=== PATIENT | female | born 1950 | race Caucasian/White ===

== ENCOUNTER 2017-01-26 21:17 | Inpatient (IN) ==
[2017-01-26] MEDS ORDERED: DUONEB (A & A) INH ONE (23:22)
[2017-01-26] MEDS ORDERED: CLINDAMYCIN 600 MG/NS 600 MG/50 ML IVPB IV ONE (23:24)
--- NOTE | 2017-01-26 23:25 | PROVIDER DOCUMENTATION ---
HPI-Rash/Wound/ReCheck - General Chief Complaint: General Adult Stated Complaint: FINGER SWELLING/LACERATION ARM Time Seen by Provider: 01/26/17 23:13 Source: patient Allergies/Adverse Reactions: Allergies Allergy/AdvReac Type Severity Reaction Status Date / Time No Known Allergies Allergy Verified 01/27/17 00:24 Home Medications: Home Medication List Medication Instructions Recorded Confirmed Last Taken Type Lisinopril [Zestril] 10 mg PO QAM 09/04/12 07/19/16 07/19/16 History Metoprolol Succinate E.r. [Toprol 50 mg PO QAM 09/04/12 07/19/16 07/19/16 History Xl] Rosuvastatin Calcium [Crestor] 5 mg PO HS 09/04/12 07/19/16 07/19/16 History Spironolactone 12.5 mg PO BID 09/04/12 07/19/16 07/19/16 History Tiotropium [place] Inhaler 1 puff INH QHS 09/04/12 07/19/16 07/19/16 History [Spiriva] Zolpidem [Ambien] 5 mg PO QHS 09/04/12 07/19/16 07/19/16 History Budesonide/Formoterol Inhaler 1 puff INH RTBID 08/05/15 07/19/16 07/19/16 History [Symbicort 160/4.5 Microgm Inhaler] Acetaminophen/Diphenhydramine 1 each PO HS 07/19/16 07/19/16 07/19/16 History [Tylenol Pm] Aspirin 325 mg PO DAILY 07/19/16 07/19/16 07/19/16 History Guaifenesin/Dm [Robitussin-Dm] 1 tab PO Q4H PRN PRN 07/19/16 07/19/16 07/19/16 History - History of Present Illness-Dermatology Nature of Presenting Problem: 66 year old WF presents with c/o pain , swelling to right thumb/hand since cutting her finger last night while doing dishes. Pt reports the swelling increased during the night with erythema spreading up through the hand. pt reports she has lost her appetite and now has nausea. Location: reports: hands Quality: reports: painful Severity: reports: moderate Onset/Duration: reports: 24 hours ago Timing: reports: still present, constant, getting worse Context/Associated Symptoms: reports: laceration Identifiable cause?: Yes Review of Systems - Adult - REVIEW OF SYSTEMS - ADULT Constitutional: reports: no symptoms reported. denies: chills, fever Eyes: reports: no symptoms reported. denies: discharge, blurred vision, double vision Ears, Nose, Mouth & Throat: reports: no symptoms reported. denies: ear discharge, ear pain, nose pain, loose teeth, throat pain, throat swelling Cardiovascular: reports: no symptoms reported. denies: chest pain, palpitations , syncope Respiratory: reports: no symptoms reported. denies: chronic cough, cough, shortness of breath, wheezing Gastrointestinal: reports: see HPI, nausea, poor appetite. denies: abdominal pain, diarrhea, vomiting Genitourinary: reports: no symptoms reported. denies: dysuria, hematuria, urgency Musculoskeletal: reports: no symptoms reported. denies: bone pain, joint pain, joint swelling, neck pain Integumentary: reports: no symptoms reported. denies: hives, itching, skin sores/ulcer Neurological: reports: no symptoms reported. denies: ataxia, numbness, paresthesia, tremors Psychiatric: reports: no symptoms reported Endocrine: reports: no symptoms reported Hematologic/Lymphatic: reports: no symptoms reported Allergic/Immunologic: reports: no symptoms reported All Other Systems: Reviewed and Negative Past History - Adult - PAST MEDICAL HISTORY-ADULT Review of Records: reports: Old Records Reviewed, Nursing Assessment Review, Medications Reviewed, Social history reviewed & non-contributory. Major Childhood Illnesses: reports: denies history Cardiovascular: reports: HTN, hyperlipidemia, [place], pacemaker Respiratory: reports: COPD Gastrointestinal: reports: denies history Obstetrical/Gynecological: reports: denies history Genitourinary: reports: denies history Musculoskeletal: reports: denies history Neurological: reports: CVA Psychiatric: reports: depression Endocrine/Immune: reports: Diabetes Other Conditions: reports: denies history - PRIOR SURGERIES/PROCEDURES Surgical/Procedure History: reports: cardiac stent, tonsillectomy - IMMUNIZATION STATUS Childhood Immunizations: See Nurse Assessment Flu Vaccine: See Nurse Assessment - FAMILY HISTORY Family History: reviewed, not pertinent - SOCIAL HISTORY Smoking: quit greater than 1 year, cigarettes Substance Use: none/never Alcohol Use Frequency: never Physical Exam-General - PHYSICAL EXAM-ADULT Initial Vital Signs Reviewed: Yes - CONSTITUTIONAL General Appearance: appears well, alert, mild distress, cachetic, thin. negative: no apparent distress, moderate distress - EYES Eyes: pink conjunctivae - HEAD, EARS, NOSE, MOUTH & THROAT HENMT: normocephalic/atraumatic, moist mucous membranes - NECK Neck: non-tender, full range of motion, supple, normal inspection. negative: C- spine tenderness, limited range of motion, tender lateral, tender midline - RESPIRATORY Respiratory: chest non-tender, lungs clear, normal breath sounds, no pleuratic chest pain, no respiratory distress, no accessory muscle use. negative: respiratory distress, decreased breath sounds, accessory muscle use, crackles, rales, rhonchi, stridor, wheezing - CARDIOVASCULAR Cardiovascular: normal peripheral pulses, regular rate, rhythm - GASTROINTESTINAL (ABDOMEN) Abdominal Exam: normal bowel sounds, non tender, soft - MUSCULOSKELETAL Back Exam: normal inspection, no CVA tenderness, no vertebral tenderness. negative: CVA tenderness, decreased range of motion, swelling, vertebral tenderness Extremity: normal range of motion, non-tender, normal gait, normal inspection, no pedal edema, no calf tenderness, normal capillary refill. negative: deformity, erythema, swelling, tenderness Peripheral Pulses: radial (R): 3+, radial (L): 3+, dorsalis-pedis (R): 3+, dorsalis-pedis (L): 3+ - SKIN Integumentary: normal color, normal turgor, warm/dry, erythema (right hand) - NEUROLOGIC Neurologic: grossly normal, no motor/sensory deficits - PSYCHIATRIC Psych/Mental Status: normal mood/affect, normal thought content, normal thought process, oriented x 3 Progress - PLAN OF CARE/RESULTS Progress/Plan/Lab Results: Vital Signs - 8 hr 01/26/17 21:24 01/26/17 23:42 01/27/17 00:06 Temperature 97.7 F Pulse Rate 88 87 94 H Respiratory Rate 18 16 16 Blood Pressure 133/93 O2 Sat by Pulse Oximetry 100 92 L Laboratory Results - last 24 hr 01/27/17 01/27/17 01/27/17 00:10 00:10 00:10 WBC 25.19 H RBC 4.01 L Hgb 9.9 L Hct 31.3 L MCV 78.1 L MCH 24.7 L MCHC 31.6 L RDW Std Deviation 15.5 H Plt Count 525 H MPV 9.6 Immature Gran % (Auto) 0.4 Neut % (Auto) 91.1 H Lymph % (Auto) 4.5 L [place] % (Auto) 3.7 Eos % (Auto) 0.3 Baso % (Auto) 0.0 Immature Gran # (Auto) 0.09 H Neut # (Auto) 22.94 H Lymph # (Auto) 1.14 L [place] # (Auto) 0.94 H Eos # (Auto) 0.07 Baso # (Auto) 0.01 PT INR PTT (Actin FS) Sodium 142 Potassium 4.4 Chloride 105 Carbon Dioxide 24 L Anion Gap 13 BUN 27 H Creatinine 0.7 Estimated GFR/1.73 m2 > 60 BUN/Creatinine Ratio 39 Glucose 174 H Calculated Osmolality 292 Calcium 9.2 Total Bilirubin 0.25 AST 15 ALT 27 Alkaline Phosphatase 65 Total Protein 6.0 L Albumin 3.7 Globulin 2.3 Albumin/Globulin Ratio 1.6 Plasma Lactate 1.8 Acetone Level 01/27/17 01/27/17 00:10 00:10 WBC RBC Hgb Hct MCV MCH MCHC RDW Std Deviation Plt Count MPV Immature Gran % (Auto) Neut % (Auto) Lymph % (Auto) [place] % (Auto) Eos % (Auto) Baso % (Auto) Immature Gran # (Auto) Neut # (Auto) Lymph # (Auto) [place] # (Auto) Eos # (Auto) Baso # (Auto) PT 10.7 INR 1.02 PTT (Actin FS) 20.3 L Sodium Potassium Chloride Carbon Dioxide Anion Gap BUN Creatinine Estimated GFR/1.73 m2 BUN/Creatinine Ratio Glucose Calculated Osmolality Calcium Total Bilirubin AST ALT Alkaline Phosphatase Total Protein Albumin Globulin Albumin/Globulin Ratio Plasma Lactate Acetone Level NEGATIVE Orders Category Date Time Status Finger Stick Blood Sugar (ED) DIRECTED Care 01/26/17 23:21 Inactive Saline Loc NOW Care 01/26/17 23:21 Active CHEST-2 VIEWS [RAD] Stat Exams 01/27/17 01:38 Ordered ACETONE SERUM [CHEM] Stat Lab 01/27/17 00:10 Completed BLOOD CULTURE [BLDCUL] Stat Lab 01/27/17 00:36 Results CBC WITH ELECTRONIC DIFF [HEME] Stat Lab 01/27/17 00:10 Completed COMPREHENSIVE METABOLIC PANEL [CHEM] Stat Lab 01/27/17 00:10 Completed LACTATE, PLASMA [CHEM] Stat Lab 01/27/17 00:10 Completed PROTIME WITH INR [COAG] Stat Lab 01/27/17 00:10 Completed PTT [COAG] Stat Lab 01/27/17 00:10 Completed URINALYSIS W/POSS RFLX CULT-1 [URINALYSIS] Stat Lab 01/26/17 23:21 Uncollected Albuterol 2.5MG/Ipratrop 0.5MG [Duoneb (A & A)] Med 01/26/17 23:22 Discontinued 3 ml INH NOW ONE Clindamycin 600 mg/Ns Med 01/26/17 23:24 Discontinued 600 mg in 50 ml IV NOW Morphine Med 01/26/17 23:58 Discontinued 2 mg IV NOW ONE Morphine Med 01/27/17 00:40 Discontinued 2 mg IV NOW ONE Morphine Med 01/27/17 01:11 Discontinued 4 mg IV NOW ONE Ondansetron [Zofran] Med 01/26/17 23:58 Discontinued 4 mg IV NOW ONE Vancomycin 1 gm IV Now Med 01/27/17 01:37 Ordered Vancomycin 1 gm/Ns 1 gm in 250 ml IV NOW Zosyn 3.375 gm/Ns IV Now Med 01/27/17 01:38 Ordered Piperacil/Tazobact 3.375 gm/Ns [Zosyn 3.375 gm/Ns] 50 ml IV NOW Aerosol Treatments Routine Oth 01/26/17 23:22 Completed Aerosol Treatments Stat Oth 01/26/17 23:22 Completed Pulse Oximetry Stat Oth 01/26/17 23:21 Active EKG [EKG] Stat Ther 01/27/17 01:38 Ordered Vital Signs - 24 hr 01/26/17 21:24 01/26/17 23:42 01/27/17 00:06 Temperature 97.7 F Pulse Rate 88 87 94 H Respiratory Rate 18 16 16 Blood Pressure 133/93 O2 Sat by Pulse Oximetry 100 92 L Orders Category Date Time Status Finger Stick Blood Sugar (ED) DIRECTED Care 01/26/17 23:21 Inactive Saline Loc NOW Care 01/26/17 23:21 Active CHEST-2 VIEWS [RAD] Stat Exams 01/27/17 01:38 Ordered ACETONE SERUM [CHEM] Stat Lab 01/27/17 00:10 Completed BLOOD CULTURE [BLDCUL] Stat Lab 01/27/17 00:36 Results CBC WITH ELECTRONIC DIFF [HEME] Stat Lab 01/27/17 00:10 Completed COMPREHENSIVE METABOLIC PANEL [CHEM] Stat Lab 01/27/17 00:10 Completed LACTATE, PLASMA [CHEM] Stat Lab 01/27/17 00:10 Completed PROTIME WITH INR [COAG] Stat Lab 01/27/17 00:10 Completed PTT [COAG] Stat Lab 01/27/17 00:10 Completed URINALYSIS W/POSS RFLX CULT-1 [URINALYSIS] Stat Lab 01/26/17 23:21 Uncollected Albuterol 2.5MG/Ipratrop 0.5MG [Duoneb (A & A)] Med 01/26/17 23:22 Discontinued 3 ml INH NOW ONE Clindamycin 600 mg/Ns Med 01/26/17 23:24 Discontinued 600 mg in 50 ml IV NOW Hydromorphone [Dilaudid] Med 01/27/17 01:45 Once 0.5 mg IV NOW ONE Morphine Med 01/26/17 23:58 Discontinued 2 mg IV NOW ONE Morphine Med 01/27/17 00:40 Discontinued 2 mg IV NOW ONE Morphine Med 01/27/17 01:11 Discontinued 4 mg IV NOW ONE Ondansetron [Zofran] Med 01/26/17 23:58 Discontinued 4 mg IV NOW ONE Vancomycin 1 gm IV Now Med 01/27/17 01:37 Ordered Vancomycin 1 gm/Ns 1 gm in 250 ml IV NOW Zosyn 3.375 gm/Ns IV Now Med 01/27/17 01:38 Ordered Piperacil/Tazobact 3.375 gm/Ns [Zosyn 3.375 gm/Ns] 50 ml IV NOW Aerosol Treatments Routine Oth 01/26/17 23:22 Completed Aerosol Treatments Stat Oth 01/26/17 23:22 Completed Pulse Oximetry Stat Oth 01/26/17 23:21 Active EKG [EKG] Stat Ther 01/27/17 01:38 Ordered Laboratory Tests 01/27/17 01/27/17 01/27/17 00:10 00:10 00:10 WBC 25.19 H RBC 4.01 L Hgb 9.9 L Hct 31.3 L MCV 78.1 L MCH 24.7 L MCHC 31.6 L RDW Std Deviation 15.5 H Plt Count 525 H MPV 9.6 Immature Gran % (Auto) 0.4 Neut % (Auto) 91.1 H Lymph % (Auto) 4.5 L [place] % (Auto) 3.7 Eos % (Auto) 0.3 Baso % (Auto) 0.0 Immature Gran # (Auto) 0.09 H Neut # (Auto) 22.94 H Lymph # (Auto) 1.14 L [place] # (Auto) 0.94 H Eos # (Auto) 0.07 Baso # (Auto) 0.01 PT INR PTT (Actin FS) Sodium 142 Potassium 4.4 Chloride 105 Carbon Dioxide 24 L Anion Gap 13 BUN 27 H Creatinine 0.7 Estimated GFR/1.73 m2 > 60 BUN/Creatinine Ratio 39 Glucose 174 H Calculated Osmolality 292 Calcium 9.2 Total Bilirubin 0.25 AST 15 ALT 27 Alkaline Phosphatase 65 Total Protein 6.0 L Albumin 3.7 Globulin 2.3 Albumin/Globulin Ratio 1.6 Plasma Lactate 1.8 Acetone Level 01/27/17 01/27/17 00:10 00:10 WBC RBC Hgb Hct MCV MCH MCHC RDW Std Deviation Plt Count MPV Immature Gran % (Auto) Neut % (Auto) Lymph % (Auto) [place] % (Auto) Eos % (Auto) Baso % (Auto) Immature Gran # (Auto) Neut # (Auto) Lymph # (Auto) [place] # (Auto) Eos # (Auto) Baso # (Auto) PT 10.7 INR 1.02 PTT (Actin FS) 20.3 L Sodium Potassium Chloride Carbon Dioxide Anion Gap BUN Creatinine Estimated GFR/1.73 m2 BUN/Creatinine Ratio Glucose Calculated Osmolality Calcium Total Bilirubin AST ALT Alkaline Phosphatase Total Protein Albumin Globulin Albumin/Globulin Ratio Plasma Lactate Acetone Level NEGATIVE Result Diagrams: 01/27/17 00:10 01/27/17 00:10 - REASSESSMENT Reassessment #1 Time Reassessed: 01:49 Status: other (pt has required multiple doses of pain medication, notified patient of admission, agrees with plan of care/treatment.) - CONSULTS/PCP/HOSPITALIST Notification #1 *Consult/PCP/Hospitalist*: Dr. Burrows Time Discussed: 01:43 Reason/Comments: cellulitis Consult Disposition: Will see in ED, Admit Departure - Departure Time of Disposition Decision: 01:43 DIAGNOSIS: Cellulitis Qualifiers: Site of cellulitis: extremity Site of cellulitis of extremity: upper extremity Laterality: right Qualified Code(s): L03.113 - Cellulitis of right upper limb COPD (chronic obstructive pulmonary disease) Qualifiers: COPD type: unspecified COPD Qualified Code(s): J44.9 - Chronic obstructive pulmonary disease, unspecified Disposition: ADMITTED INPATIENT 09 Certified Medical Emergency: Emergent Condition: Stable Referrals and Follow-Ups: None,PCP [Primary Care Provider] - - Critical Care Note This patient required my direct & personal management of CC.: No Attestation - Physician/ VITOR Attestation Patient care was provided by Advanced Practice Provider:: Yes Advanced Practice Provider:: Kiki Martinez Advanced Practice Provider documentation review:: The Mid-level provider documentation, treatment plan and medical decision making was reviewed by the physician who agrees with all treatment and medical decision making by the MLP.
[2017-01-26] MEDS ORDERED: MORPHINE IV ONE (23:58)
[2017-01-26] MEDS ORDERED: ZOFRAN IV ONE (23:58)
[2017-01-27] MEDS ORDERED: MORPHINE IV ONE ×2 (00:40→01:11)
[2017-01-27 00:42] LABS: INR 1.02; PROTIME 10.7 Seconds (9.2-11.7); PTT 20.3 Seconds (22.0-36.0)
[2017-01-27 01:01] LABS: AGAP 13; ALBUMIN 3.7 g/dL (3.5-5.0); ALKALINE PHOSPHATASE 65 U/L (32-104); BUN 27 mg/dL (8-22); CALCIUM 9.2 mg/dL (8.8-10.2); CHLORIDE 105 mmol/L (98-107); COSMO 292; GOT 15 U/L (10-30); GPT 27 U/L (10-36); POTASSIUM 4.4 mmol/L (3.5-5.1); SODIUM 142 mmol/L (136-145); TCO2 24 mmol/L (25-35); TOTAL BILIRUBIN 0.25 mg/dL (0.20-1.00)
[2017-01-27 01:31] LABS: EOS# 0.07 X1000 (0.0-0.7); EOS% 0.3 % (0.0-10.0); HEMATOCRIT 31.3 % (37.0-47.0); HEMOGLOBIN 9.9 g/dL (12.0-16.0); IMM GRAN# 0.09 X1000 (0.0-0.04); IMM GRAN% 0.4 % (0.0-0.5); LYMPH# 1.14 X1000 (1.2-3.4); LYMPH% 4.5 % (20.5-51.1); MANUAL DIFF NEEDED? NO; MCH 24.7 PG (27-31); MCHC 31.6 g/dL (33-37); MCV 78.1 FL (81-99); MONO# 0.94 X1000 (0.11-0.59); MONO% 3.7 % (1.7-9.3); MPV 9.6 FL (7.4-10.4); NEUT% 91.1 % (42.2-75.2); PLT 525 X1000 (130-400); RBC 4.01 XMIL (4.2-5.4)
[2017-01-27] MEDS ORDERED: VANCOMYCIN 1 GM/NS 1 GM/250 ML IVPB IV ONE (01:37)
[2017-01-27] MEDS ORDERED: ZOSYN 3.375 GM/NS 3.375 GM/50 ML IVPB IV ONE (01:38)
[2017-01-27] MEDS ORDERED: DILAUDID IV ONE (01:45)
[2017-01-27] MEDS ORDERED: NS 1,000 ML IV SCH ×2 (02:55→11:46)
[2017-01-27] MEDS ORDERED: ZOFRAN IV PRN (02:55)
[2017-01-27] MEDS ORDERED: VANCOMYCIN IV PER PHARMACY MISC SCH (02:55)
--- NOTE | 2017-01-27 03:23 | HISTORY AND PHYSICAL ---
PRIMARY CARE PHYSICIAN: Patient does not recall the doctor's name. CHIEF COMPLAINT: Right hand pain and swelling. HISTORY OF PRESENTING ILLNESS: This is a 66-year-old female with a history of COPD, hypertension, and coronary artery disease who had presented to the emergency department with a 1- day history of right hand swelling and pain. Patient states that she was cooking some pulled pork when all of a sudden, she poked her finger onto the aluminum tray. Thereafter, her finger started swelling and then it started getting red and going up to her hand and wrist. She states the pain was worsening so came to the emergency department. In the ER, she was evaluated. She had a moderate amount of redness and tenderness and edema on the right hand. It was consistent with cellulitis and subsequently, it was thought that she would need hospitalization for further management. At the time of my examination, she had denied any headache, fever, chills, chest pain, shortness of breath, hemoptysis, melena, or any weight changes but complained of a moderate amount of pain in the right hand. PAST MEDICAL HISTORY: Includes COPD, [place], hypertension, coronary artery disease. PAST SURGICAL HISTORY: Coronary stent, pacemaker, tonsillectomy, kidney stone removal. ALLERGIES: No known drug allergies. CURRENT MEDICATIONS: As listed in the MAR. SOCIAL HISTORY: She is a former smoker. Denies any history of alcohol or illicit drug use. FAMILY HISTORY: Positive for coronary artery disease in mother. REVIEW OF SYSTEMS: Twelve point review of systems listed as in the HPI. Other systems all negative. PHYSICAL EXAMINATION: GENERAL: Cooperative, friendly female. She is resting comfortably now. VITAL SIGNS: Temperature 97.7 degrees, pulse 88, respiration 18, blood pressure 133/93. HEENT: Atraumatic, normocephalic. Extraocular movements intact. PERRLA. NECK: No masses. CHEST: Clear to auscultation. CARDIOVASCULAR: Regular rate and rhythm. ABDOMEN: Soft. Positive bowel sounds. EXTREMITY: Right hand edema, erythema, and tenderness. NEUROLOGIC: She is awake, alert, oriented x3. : No bladder distention. SKIN: Warm. LABORATORIES AND STUDIES: WBC 25.19, hemoglobin 9.9, hematocrit 31.3, platelets 525,000. Sodium 142, potassium 4.4, chloride 105, CO2 is 24, BUN is 27, creatinine 0.7, glucose is 174. ASSESSMENT: This is a 66-year-old female with a history of chronic obstructive pulmonary disease, myocardial infarction, hypertension, and coronary artery disease who had presented to the emergency department with a 1-day history of right hand pain and swelling. Apparently, this occurred after she injured her finger on an aluminum tray. She was evaluated in the emergency room. Her hand looked moderately inflamed and edematous, consistent with cellulitis. Subsequently, she will need hospitalization for further management. 1. Right hand cellulitis. 2. Hypertension. 3. Chronic obstructive pulmonary disease. PLAN: 1. We will admit patient to medical floor with telemetry. 2. We will start patient on IV antibiotics. 3. We will monitor blood pressure and resume antihypertensive agents. 4. Continue with Osvaldo p.r.n. 5. Put patient on DVT prophylaxis with SCDs. 6. We will continue to follow and reassess. cc: Nilton Burrows MD
[2017-01-27] MEDS: DUONEB (A & A) INH SCH ×6 (03:50→23:10)
[2017-01-27] MEDS ORDERED: VANCOMYCIN 1,200 MG in NS 250 ML IV ONE (04:00)
[2017-01-27] MEDS: DILAUDID IV PRN ×5 (04:45→22:46)
[2017-01-27] MEDS ORDERED: ROCEPHIN 1 GM/NS 1 GM/50 ML IVPB IV SCH (06:00)
--- NOTE | 2017-01-27 07:56 | Diag Imaging Result Doc PS360 ---
EXAM: CHEST-2 VIEWS HISTORY: admission COMMENT: There is hazy opacity over the lung bases which has worsened since 07/21/2016. There are some prominent curly B lines. The heart size and primary vascularity are within normal limits. There is some apparent emphysematous change in the upper lung zones. IMPRESSION: COPD. Interstitial edema. Electronically signed by Sen Chandra 01/27/2017 7:54 AM
[2017-01-27] MEDS ORDERED: LASIX IV ONE (11:39)
[2017-01-27] MEDS: ZOSYN 3.375 GM/NS 3.375 GM/50 ML IVPB IV SCH ×3 (11:56→22:46)
[2017-01-27 13:43] LABS: URINE MICRO REVIEW NEEDED? NO; URINE SOURCE CLEAN CATCH
[2017-01-27 13:57] LABS: BILIRUBIN URINE NEGATIVE (NEGATIVE); BLOOD URINE NEGATIVE (NEGATIVE); COLOR YELLOW; GLUCOSE URINE 200 mg/dL (NEGATIVE); LEUKOCYTES URINE LARGE (NEGATIVE); NITRITE URINE NEGATIVE (NEGATIVE); PROTEIN URINE TRACE mg/dL (NEGATIVE); SP GRAVITY URINE 1.015; TURBIDITY URINE CLEAR (CLEAR); UR EPITHELIAL CELLS <10 /HPF (<10); URINE BACTERIA NEGATIVE /HPF; URINE CULTURE NEEDED? YES; URINE RBC <10 /HPF (<10); UROBILINOGEN URINE NORMAL (NORMAL)
--- NOTE | 2017-01-27 14:27 | Diag Imaging Result Doc PS360 ---
EXAM: HAND COMPLETE RIGHT HISTORY: hand swelling COMPARISON: None. FINDINGS: No fracture. No dislocation. There is soft tissue swelling along the dorsum of the hand. No foreign body. No other bony abnormality. IMPRESSION: Soft tissue swelling, but no bony abnormality. Electronically signed by Pavan Yoder 01/27/2017 2:25 PM
--- NOTE | 2017-01-27 14:43 | PROGRESS NOTE ---
DATE: 01/27/2017 SUBJECTIVE: This patient is lying comfortably on the bed. She is complaining of right upper extremity pain, especially the hand. She is completely alert and oriented x3. She is able to provide the history of her admission. I evaluated this patient around 11:30 a.m. today and again today at 1:35 p.m. OBJECTIVE: Vital Signs: Temperature 98 degrees, pulse 97, respiratory rate 14, blood pressure 118/67, oxygen saturation 98 on 2 L of nasal cannula. HEENT: Head normocephalic. No trauma. PERRLA. Neck: Supple. No JVD. No masses. Central trachea. Chest: Bilateral coarse breath sounds with rhonchi bilaterally, generalized. Decreased breath sounds at the bases. Cardiovascular: RRR. Abdomen: Soft, nontender, nondistended. Positive bowel sounds. Extremities: Right hand edema. Tenderness to palpation and mobilization. Her index finger looks pale and cold, also pain to palpation and mobilization. Neurological: The patient is alert and oriented x3. She moves all 4 extremities. The movement of the right upper extremity is decreased due to pain. LABORATORY: WBC 25, hemoglobin 9.9, hematocrit 31.3, platelets 525,000. Sodium 142, potassium 4.4, chloride 105, bicarbonate 24, BUN 27, creatinine 0.7, glucose 174 calcium 9.2, albumin 3.7. ASSESSMENT AND PLAN: 1. Right hand cellulitis. I am concerned about index finger ischemia. I talked to the patient and she had a small wound a few days ago on that finger and apparently the edema, redness, and pain has been getting worse. I consulted orthopedic surgery and surgery department. This patient was already evaluated at this time by surgery department. As per the nurse, they are going to take this patient to the OR to do an amputation, but it I do not have the final report at this moment. 2. Chronic obstructive pulmonary disease. Not in exacerbation but it looks like she has some lung fluid. I will decrease the rate of the normal saline a little bit and I will gave her a 1 time dose of Lasix. At the moment of my reevaluation, she is breathing better. 3. Hypertension. Blood pressure is stable. She is not getting any antihypertensive medication at this moment. 4. Interstitial edema. As above. 5. History of coronary artery disease. Aware. She is not complaining of chest pain at this moment. I had a conversation with the patient and she is aware about her ischemic finger. She already talked to the surgeon and she states pain is too much right now and she agreed with the treatment proposed by the surgeon. cc: Pradip Barnhart MD
--- NOTE | 2017-01-27 15:46 | CONSULTATION ---
DATE OF CONSULTATION: 01/27/2017 HISTORY OF PRESENT ILLNESS: This 66-year-old female who 2-3 days ago was cooking some meat, had an injury to her hand, laceration versus questionable burn. Has had progressive swelling, pain over right index finger extending to upper arm to the level of her wrist prompting her presentation to the emergency department. She has had some fevers and has generally felt pretty poor since this time, very painful. She presented to the emergency department early this morning approximately 12 hours ago and started on broad-spectrum IV antibiotics and has had no improvement in her hand. If anything the right 2nd finger became more ischemic appearing, bluish white discoloration with worsening pain and some purulent drainage from the distal aspect despite IV antibiotics. The patient states the pain was so bad in her finger at home that she has had a tourniquet around it as well for quite a long period of time. PAST MEDICAL HISTORY: 1. She has COPD. 2. History of myocardial infarction, coronary artery disease with stents. 3. Hypertension. PAST SURGICAL HISTORY: Coronary stents. She has got a pacemaker, tonsillectomy, kidney stone removal. REVIEW OF SYSTEMS: Ten point negative other than was mentioned in HPI. SOCIAL HISTORY: History of smoking. Denies alcohol or drugs. FAMILY HISTORY: Coronary disease. PHYSICAL EXAM: She has been afebrile but heart rate has become progressively more tachycardic now high 90s to 1 teens. Blood pressure 118/67, oxygen saturation 98% on 2 L.General: She is alert, chronically ill-appearing cachectic female. Cardiovascular: Sinus tachycardia. Pulmonary: She is on nasal cannula. She has quite a scaphoid appearing thorax with wasting over supraclavicular and neck muscles. Abdomen: Soft, nontender, nondistended. Her left arm is normal, well perfused with palpable radial and ulnar pulses. Her right hand is very swollen and erythematous to the level of the wrist, very painful with movement passive. The right index finger again is painful. It has a bluish discoloration. There is no capillary refill of the nail bed and there is some crusting purulent drainage from the lateral aspect of the distal phalanx. The remaining digits seemed well perfused and neurovascularly intact. Doppler exam: She has got strong radial, ulnar, and palmar arch signal and I hear digital signals over her thumb and 3rd finger however nothing over her index finger. LABS: White count 25, hematocrit 31, platelets 525,000. INR is 1.02. Sodium is 142, creatinine 0.7, glucose 174. Lactate is 1.8. Blood cultures pending. ASSESSMENT AND PLAN: 66-year-old female with what appears to be severe progressive cellulitis of her right hand extending up the forearm. I suspect it is related to an initial infection of her index finger as I see some pus here and this appears also now to be frankly ischemic either from the tourniquet which she placed or from the local infection. Also worry could this be of necrotizing process extending up her arm. Discussion with the patient regarding risks, benefits and alternatives with the goal of saving her hand and recommended debridement which ultimately require an amputation of her 2nd finger. She understands this and consents to this. I think this is the next step given that she has failed to progress with now 12 hours of IV antibiotics and only worsening of the erythema and redness extending up her arm. We will plan to go urgently this afternoon to the operating room for amputation of the right 2nd finger and examination of the remainder of the hand under anesthesia. cc: Jonn Jaramillo MD
[2017-01-27] MEDS ORDERED: DIPRIVAN 1% ONE (15:54)
[2017-01-27] MEDS ORDERED: EPHEDRINE ONE (17:07)
[2017-01-27] MEDS ORDERED: LR 1,000 ML ONE (17:08)
[2017-01-27] MEDS ORDERED: XYLOCAINE-MPF 2% ONE (17:08)
[2017-01-27] MEDS ORDERED: QUELICIN (DOSE) ONE (17:08)
--- NOTE | 2017-01-27 17:29 | OPERATIVE NOTE ---
PROCEDURE DATE: 01/27/2017 PREOPERATIVE DIAGNOSIS: Infected ischemic necrosis of the right index finger with right hand and arm cellulitis. POSTOPERATIVE DIAGNOSIS: Infected ischemic necrosis of the right index finger with right hand and arm cellulitis. PROCEDURES PERFORMED: Amputation of the right index finger. ESTIMATED BLOOD LOSS: 10 mL. SPECIMENS: Right index finger and proximal wound tissue for tissue culture. ANESTHESIA: General. INDICATIONS: This is a 66-year-old female whose had increasing pain and swelling after an injury to her right index finger several days ago. After talking with the patient, she states that she had applied a tourniquet, a tight rubber band to this finger to help with the pain control but developed worsening pain, erythema, and redness of her hand, extending up her arm, and was admitted to the medicine service. She had a leukocytosis of 25, some tachycardia despite broad- spectrum antibiotics for approximately 12 hours. She had persistence and progression of her pain, erythema, and swelling, and pallor, and signs of early necrosis of the right index finger. Amputation was indicated for source control and treatment of her ischemic pain. FINDINGS: There was a densely ischemic right index finger. There was no bleeding noted from the digit; however, there was some purulent material upon excising the digit. The joint space seemed healthy. There was some edema in the soft tissues but otherwise proximal hand there was good bleeding tissue. OPERATIVE NOTE: Risks, benefits, alternatives discussed with the patient and her son and she consented to the procedure. She was taken to the operating room, placed in the supine position after marking her surgical site in the preoperative area. We prepped her hand with Betadine solution and draped in the usual fashion. We did take pictures and included these in the medical record to document the extent of the ischemia of her hand and finger. After time-out was performed, we made a circumferential incision at the base of the digit and carried this down to the joint space with electrocautery and entered the joint, fully removing the digit. We obtained hemostasis with electrocautery. Passed the specimen off for permanent pathology. We irrigated the wound. The joint space seemed healthy. The proximal metacarpal bone was healthy with a shiny joint space. Left the wound open given the purulent material we saw here. A Vashe dressing was applied and a loose wrap. She tolerated it well and was transferred to recovery. I spoke with the son in the room. All counts were correct. cc: Jonn Jaramillo MD
--- NOTE | 2017-01-27 18:08 | CONSULTATION ---
DATE OF CONSULTATION: 01/27/2017 CONCLUSION: The patient is status post amputation of the right index finger due to ischemic necrosis of the finger. Cultures at the time of surgery were obtained. There was purulence encountered in the hand where the finger was amputated. RECOMMENDATIONS: I agree with decision to treat the patient with vancomycin and Zosyn pending culture results. PRESENT ILLNESS: The patient injured her right finger when she was cooking some pulled pork. She stuck her finger into the tray that the pork was on and suffered a burn wound. Subsequently, the patient's whole hand and distal part of the arm became erythematous and swollen. The finger went on to become ischemic and then necrotic. DIAGNOSTIC STUDIES: Cultures were taken at surgery and also blood cultures have been drawn. Urine culture has been obtained. All these results are pending. The patient's CBC shows a white count of 25,190, hemoglobin 9.9, and platelet count 525,000. Creatinine is 0.7. GFR is greater than 60. Liver function studies are normal. The x-ray of the right hand showed soft tissue swelling. POWDER MONKEY HISTORY: She is a 3 para 3, AB 0. PAST MEDICAL HISTORY: Previous hospitalizations and operations: She has had a myocardial infarction and admissions for COPD. She has also had placement of coronary artery stents, placement of a pacemaker. Tonsillectomy and kidney stone removal. Medical Diseases: Positive for COPD, myocardial infarction, hypertension, coronary artery disease, and a cardiac arrhythmia necessitating the placement of a pacemaker. Infectious disease history: Positive for urinary tract infection. Negative for pneumonia. REVIEW OF SYSTEMS: This was unobtainable from the patient. The history that I did obtain was from the patient's family. I could not obtain it from the patient but the patient's sister told me that the patient in the past 6 months has lost 30 pounds and has become anemic. ALLERGY HISTORY: The patient has no known drug allergies. MEDICATIONS: Taken at home include the following: Ambien, Spiriva, spironolactone, Crestor, Toprol, Zestril, Robitussin DM, Symbicort, Tylenol p.m. and aspirin. PHYSICAL EXAMINATION: Vital Signs: Temperature is 97.3, pulse 123, respirations 18, blood pressure 105/57. The patient weighs 94 pounds. Generally: This is a very thin, chronically ill- appearing, elderly female. She has just returned from surgery, so she is sedated. HEENT: No drainage from the nose or ears were noted. Neck: No meningismus. Thorax: Patient has a pacemaker present on the left side of the chest. The site does not have any erythema or soft tissue swelling. There is an increased AP diameter of the chest. Heart: Rate was regular. Lungs: Clear to auscultation. Abdomen: Soft without masses or tenderness. Neurologic: Patient is sedated. She just came from the recovery room. She is breathing on her own. She did not move her extremities. There was no tremor. Integument: No rash noted. Extremities: There is a large dressing around the patient's right hand. There is some sanguinous staining of the dressing. Thank you for the consult. cc: Joe Bustamante MD
[2017-01-28] MEDS: DILAUDID IV PRN ×3 (02:17→14:09)
[2017-01-28] MEDS: DUONEB (A & A) INH SCH ×6 (02:55→23:02)
[2017-01-28] MEDS: VANCOMYCIN 1 GM/NS 1 GM/250 ML IVPB IV SCH (03:30)
[2017-01-28] MEDS: ZOSYN 3.375 GM/NS 3.375 GM/50 ML IVPB IV SCH ×2 (04:46→14:09)
[2017-01-28 06:19] LABS: BASO% 0.1 % (0.0-0.8); EOS# 0.11 X1000 (0.0-0.7); EOS% 0.6 % (0.0-10.0); HEMATOCRIT 30.7 % (37.0-47.0); HEMOGLOBIN 9.6 g/dL (12.0-16.0); IMM GRAN# 0.06 X1000 (0.0-0.04); IMM GRAN% 0.3 % (0.0-0.5); LYMPH# 0.66 X1000 (1.2-3.4); LYMPH% 3.7 % (20.5-51.1); MANUAL DIFF NEEDED? YES; MCH 24.7 PG (27-31); MCHC 31.3 g/dL (33-37); MCV 79.1 FL (81-99); MONO% 8.4 % (1.7-9.3); MPV 9.6 FL (7.4-10.4); NEUT% 86.9 % (42.2-75.2); PLT 304 X1000 (130-400); RBC 3.88 XMIL (4.2-5.4)
[2017-01-28 06:30] LABS: BANDS 2 % (0-1); LYMPHS 8 % (21-51); MONO 8 % (1-9)
[2017-01-28 06:31] LABS: AGAP 11; BUN 23 mg/dL (8-22); CALCIUM 8.1 mg/dL (8.8-10.2); CHLORIDE 99 mmol/L (98-107); COSMO 279; SODIUM 137 mmol/L (136-145); TCO2 27 mmol/L (25-35)
--- NOTE | 2017-01-28 09:59 | PROGRESS NOTE ---
DATE: 01/28/2017 SUBJECTIVE: She continues to have some pain in her hand but, otherwise, she seems more alert and mentating better this morning. OBJECTIVE: Temperature is 97.9, pulse has been low in the 1-teens. Oxygen saturation 94%-95% on 2-3 L. General: She is alert in no acute distress. Her right hand is less swollen. There is less erythema. The amputation site of her right index finger is clean. I do not see any pus here. LABORATORY DATA: White count 17, hematocrit 30. Creatinine 0.8. Tissue cultures from the right hand are showing multiple organisms, gram-positive cocci, gram-negative cocci. ASSESSMENT AND PLAN: A 66-year-old female with ischemia and infected necrosis of the right index finger causing extensive cellulitis of her right hand and arm, status post amputation yesterday evening. The wound is cleaning up nicely. She is on broad-spectrum antibiotics. Dr. Bustamante is following. We will continue following. Continue Vashe dressings b.i.d. to her wound and will continue to monitor for need for further debridement, although I do not suspect that will be the case at this point. cc: Jonn Jaramillo MD
--- NOTE | 2017-01-28 14:50 | PROGRESS NOTE ---
DATE: 01/28/2017 SUBJECTIVE: This patient is lying comfortably on the bed. She is complaining of right upper extremity pain but compared with yesterday, it is much better. She is status post amputation of her right index finger and she states that after that the pain decreased a lot. She is completely alert and oriented x3. She is able to provide the history. Surgery department and infectious disease department is following this patient. OBJECTIVE: Vital Signs: Temperature 97.9 degrees, pulse 117, respiratory rate 14, blood pressure 109/57, oxygen saturation 94% on 2 L of nasal cannula. HEENT: Head normocephalic. No trauma. PERRLA. Neck: Supple. No JVD. No masses. Central trachea. Chest: Bilateral coarse breath sounds with mild rhonchi at the bases. Decreased breath sounds at the bases as well. Prolonged expiatory phase. Cardiovascular: RRR. Abdomen: Soft, nontender, nondistended. Positive bowel sounds. Extremities: Right hand edema with a new dressing. The index finger has been amputated. She is complaining of moderate pain but compared with yesterday she looks much better. Neurological: The patient is alert and oriented x3. She moves all 4 extremities. LABORATORY: WBC 17.8, hemoglobin 9.6, hematocrit 30.7, platelets 304,000. Sodium 137, potassium 4, chloride 99, bicarbonate 27, BUN 23, creatinine 0.8, glucose 121, calcium 8.1. ASSESSMENT AND PLAN: 1. Rind right hand cellulitis. I will continue with the broad-spectrum antibiotics. Wound care is on board. We will continue with the same management for now. Yesterday she had an amputation of the right index finger; that looks good today. 2. Right index finger ischemia status post amputation. As above. 3. Chronic obstructive pulmonary disease not in exacerbation. She is breathing good. We will continue with the same management. 4. Hypertension. Blood pressure is stable. Continue with the same management. 5. Interstitial edema. This is getting better clinically. Continue to monitor. 6. History of coronary artery disease. Aware. She is not complaining of chest pain or having shortness of breath at this moment. 7. Hyperglycemia. I will check a hemoglobin A1c. For now, I will continue with the same management. 8. Leukocytosis, likely secondary to the infection. This is getting better. The WBC decreased from 25.1 to 17.8. We will continue to monitor and with antibiotics. cc: Pradip Barnhart MD
--- NOTE | 2017-01-28 17:49 | PROGRESS NOTE ---
DATE: 01/28/2017 PRESENT ILLNESS: The patient is status post amputation of the right index finger. A culture from the hand, on Gram stain shows gram-positive cocci. One blood culture is growing gram-positive cocci. MEDICATIONS: The patient is on vancomycin and Zosyn. PHYSICAL EXAMINATION: Vital Signs: Temperature is 97.9 degrees, pulse 111, respiration is 15, blood pressure 116/49. General: This is a frail-appearing, elderly female who is in no acute distress. Lungs: Clear to auscultation. Cardiovascular: Heart rate is regular. Abdomen: Soft and nontender. Extremities: The patient's right hand has a dressing around it. The dressing is intact. Thorax: Patient on the left side of her chest has a combination pacemaker- defibrillator. The site is not erythematous or tender. LAB AND X-RAY: The CBC today shows a white count of 17,840, hemoglobin 9.6, and platelet count 304,000. Creatinine 0.8. GFR is greater than 60. As mentioned above, Gram stain from the hand wound shows gram-positive cocci, and 1 blood culture is growing gram-positive cocci. ASSESSMENT AND PLAN: Patient has bacteremia and a hand infection. I think that the patient's hand infection is the origin of the patient's bacteremia. My plan now will be to continue vancomycin but discontinue Zosyn pending final culture results. Also, I am going to repeat the patient's blood cultures and if they are sterile, then I plan to have a PICC placed in her arm. I discussed with the patient and Dr. Jaramillo antibiotic treatment. We agree to treating with IV antibiotics for a 6 week period in order to try to clear any infection that remains in the patient's hand. COMORBIDITY: Mainly she is elderly. cc: Joe Bustamante MD
[2017-01-29] MEDS: DILAUDID IV PRN (00:29)
[2017-01-29] MEDS: DUONEB (A & A) INH SCH ×6 (03:53→23:00)
[2017-01-29] MEDS: VANCOMYCIN 1 GM/NS 1 GM/250 ML IVPB IV SCH (04:25)
[2017-01-29 06:34] LABS: HEMOGLOBIN A1C 7.3 % (4.8-6.0)
[2017-01-29 08:11] LABS: BASO% 0.1 % (0.0-0.8); EOS% 0.6 % (0.0-10.0); HEMATOCRIT 29.2 % (37.0-47.0); HEMOGLOBIN 9.2 g/dL (12.0-16.0); IMM GRAN# 0.04 X1000 (0.0-0.04); IMM GRAN% 0.2 % (0.0-0.5); LYMPH% 2.3 % (20.5-51.1); MANUAL DIFF NEEDED? YES; MCH 24.7 PG (27-31); MCHC 31.5 g/dL (33-37); MCV 78.5 FL (81-99); MONO# 1.18 X1000 (0.11-0.59); MONO% 6.8 % (1.7-9.3); MPV 10.3 FL (7.4-10.4); PLT 329 X1000 (130-400); RBC 3.72 XMIL (4.2-5.4)
[2017-01-29 08:14] LABS: AGAP 18; BUN 20 mg/dL (8-22); CALCIUM 8.1 mg/dL (8.8-10.2); CHLORIDE 98 mmol/L (98-107); COSMO 281; POTASSIUM 3.9 mmol/L (3.5-5.1); SODIUM 139 mmol/L (136-145); TCO2 23 mmol/L (25-35)
[2017-01-29 08:32] LABS: BANDS 8 % (0-1); LYMPHS 2 % (21-51); MONO 4 % (1-9)
--- NOTE | 2017-01-29 13:40 | PROGRESS NOTE ---
DATE: 01/29/2017 SUBJECTIVE: She feels okay. She is a little confused this morning. Minimal pain in her hand. OBJECTIVE: Temperature is 98.4 degrees, pulse low 100s. Blood pressure 137/58. Right hand with decreased erythema and swelling. The wound is clean without any ongoing necrosis or purulence that I can tell. The remaining digits are perfused. White count down to 17, hematocrit 29, creatinine 0.6, glucose 119. ASSESSMENT AND PLAN: A 66-year-old female status post amputation of right index finger secondary to an infected ischemic digit causing significant cellulitis of the hand and arm. She is doing okay. We will continue wet-to-dry dressings b.i.d. to her wound. Long-term broad-spectrum antibiotics per Dr. Bustamante and, otherwise, medical management per the hospitalist. We will continue follow along. cc: Jonn Jaramillo MD
--- NOTE | 2017-01-29 14:17 | PROGRESS NOTE ---
DATE: 01/29/2017 SUBJECTIVE: This patient is still lying on the bed. She is still complaining of right upper extremity pain, but compared with yesterday she is better. She is status post amputation of her right index finger. She is alert, but she is oriented x2. She is able to recognize people, her son. Surgery and the Infectious Disease Department are following this patient. For now, we will continue with the antibiotics. I will ask for Physical Therapy to evaluate this patient. OBJECTIVE: Vital Signs: Temperature 98.4 degrees, pulse 75, respiratory rate 15, blood pressure 137/58, and oxygen saturation 99% on 3L of nasal cannula. HEENT: Head normocephalic. No trauma. PERRLA. Neck: Supple. No JVD. No masses. Central trachea. Chest: Clear to auscultation. No wheezing. No rales. Decreased breath sounds at the bases. Prolonged expiratory phase. Cardiovascular: RRR. Abdomen: Soft, nontender, nondistended. Positive bowel sounds. Extremities: Right hand edema and a new dressing. The index finger has been amputated. The swelling looks much better, but she still has redness and pain. Neurological: The patient is alert. She is oriented x2. She is not oriented to time. She moves all 4 extremities. She follows commands. LABORATORY: WBC 17.3, hemoglobin 9.2, hematocrit 29.2, platelets 329,000, bands 8. Sodium 139, potassium 3.9, chloride 98, bicarbonate 23, BUN 20, creatinine 0.6, glucose 118. Hemoglobin A1c 7.3. Calcium 8.1. ASSESSMENT AND PLAN: 1. Right hand cellulitis. Continue with antibiotics. This patient is on vancomycin. The Infectious Disease Department and Surgery Department are on board. Just 2 days ago, she had an amputation of the right index finger and that is looking good today. 2. Right index finger ischemia, status post amputation, as above. 3. Chronic obstructive pulmonary disease, not in exacerbation. She is breathing good. We will continue with the same management. 4. Hypertension. Blood pressure is stable. Continue with the same treatment. 5. Interstitial edema. This is getting better clinically. Continue to monitor. 6. History of chronic obstructive pulmonary disease. Aware. She is not complaining of chest pain or having shortness of breath. 7. Type 2 diabetes. Her hemoglobin A1c is 7.3. She looks a little bit dehydrated, so I will put this patient on normal saline and I will start this patient on sliding scale insulin. 8. Leukocytosis. This is likely secondary to the infection. This is getting better. The WBC decreased from 25 to 17.8, and today to 17.3. We will continue to monitor and with antibiotics. cc: Pradip Barnhart MD
[2017-01-29] MEDS: HUMULIN R SUBQ SCH (16:41)
--- NOTE | 2017-01-29 16:42 | PROGRESS NOTE ---
DATE: 01/29/2017 PRESENT ILLNESS: The patient is status post amputation of her right index finger. A Gram's stain of the finger gram-positive cocci were seen. A blood culture also is growing gram-positive cocci. MEDICATIONS: The patient is on vancomycin and Zosyn. PHYSICAL EXAMINATION: Vital Signs: Temperature is 98.5, pulse 75, respirations 15, blood pressure 137/58. Generally: This is a chronically ill-appearing, elderly female. She is in no acute distress at this time. Cardiovascular: Heart rate is regular. Lungs: Clear to auscultation. Abdomen: Soft and nontender. Extremities: The patient's hand is in a dressing. There is some sanguinous drainage on the dressing. The dressing is intact. Thorax: On the left side of the chest, the patient has a pacemaker defibrillator present. The site is not erythematous or tender. LAB AND X-RAY: The CBC shows a white count of 17,300, hemoglobin 9.2, and platelet count 329,000. Creatinine is 0.6. GFR is greater than 60. The patient's blood culture grew out group A Streptococcus. Repeat blood cultures have been obtained. The patient's right hand is growing a gram-positive coccus, the etiology of which is uncertain to me. I would suspect though given that the patient has a strep bacteremia, that the culture from the patient's right hand will be group A Strep also. ASSESSMENT AND PLAN: I am going to discontinue vancomycin. I am going to change the patient's antibiotic to Rocephin 1 g IV every 12 hours. Because the patient has a pacemaker implanted which could become infected during the streptococcal bacteremia, I plan to treat with Rocephin for a total of 6 weeks and then put the patient on a low dose of an oral antibiotic such as just plain penicillin. I am waiting to put in a central line until the repeat blood cultures show that they are sterile. COMORBIDITY: She is elderly. She also suffered a burn wound to her right index finger. cc: Joe Bustamante MD [facility]
[2017-01-29] MEDS: NS 1,000 ML IV SCH (17:39)
[2017-01-29] MEDS: ROCEPHIN 1 GM/NS 1 GM/50 ML IVPB IV SCH (17:39)
[2017-01-30] MEDS: HUMULIN R SUBQ SCH ×5 (00:12→21:41)
[2017-01-30 03:05] LABS: BASO% 0.1 % (0.0-0.8); EOS# 0.03 X1000 (0.0-0.7); EOS% 0.2 % (0.0-10.0); HEMATOCRIT 29.5 % (37.0-47.0); HEMOGLOBIN 9.4 g/dL (12.0-16.0); IMM GRAN# 0.06 X1000 (0.0-0.04); IMM GRAN% 0.3 % (0.0-0.5); LYMPH# 0.36 X1000 (1.2-3.4); LYMPH% 1.8 % (20.5-51.1); MANUAL DIFF NEEDED? YES; MCH 24.7 PG (27-31); MCHC 31.9 g/dL (33-37); MCV 77.4 FL (81-99); MONO# 1.33 X1000 (0.11-0.59); MONO% 6.7 % (1.7-9.3); MPV 9.5 FL (7.4-10.4); NEUT% 90.9 % (42.2-75.2); PLT 351 X1000 (130-400); RBC 3.81 XMIL (4.2-5.4)
[2017-01-30 03:30] LABS: AGAP 17; BUN 14 mg/dL (8-22); CALCIUM 8.1 mg/dL (8.8-10.2); CHLORIDE 102 mmol/L (98-107); COSMO 277; POTASSIUM 3.5 mmol/L (3.5-5.1); SODIUM 137 mmol/L (136-145); TCO2 18 mmol/L (25-35)
[2017-01-30 03:34] LABS: BANDS 4 % (0-1); HYPOCHROM 1+; LYMPHS 3 % (21-51); MONO 6 % (1-9)
[2017-01-30 03:35] LABS: LARGE PLATELETS OCCASIONAL
[2017-01-30] MEDS: DUONEB (A & A) INH SCH ×6 (03:47→22:53)
[2017-01-30] MEDS: NS 1,000 ML IV SCH ×2 (03:50→10:58)
[2017-01-30] MEDS: ROCEPHIN 1 GM/NS 1 GM/50 ML IVPB IV SCH ×2 (04:58→17:51)
[2017-01-30] MEDS: ASPIRIN PO SCH (10:20)
[2017-01-30] MEDS: PLAVIX PO SCH (10:22)
[2017-01-30] MEDS: FERROUS SULFATE PO SCH (10:23)
[2017-01-30] MEDS: NORCO-5 PO PRN (10:23)
[2017-01-30] MEDS: LOPRESSOR PO SCH (10:23)
--- NOTE | 2017-01-30 14:50 | PROGRESS NOTE ---
DATE: 01/30/2017 Ms. Aminata Dee is a 66-year-old white female patient of Dr. Jaramillo. She is now postop day 3 from an amputation of right index finger secondary to infection. Her white blood cell count is 19. She remains hospitalized on IV antibiotics for control of cellulitis involving that hand and arm. She reports that the cellulitis is improving. The nurse has dressed the wound and says that the amputation site looks well. She continues on IV antibiotics with wound care. cc: Lidia Weeks MD
--- NOTE | 2017-01-30 15:42 | PROGRESS NOTE ---
DATE: 01/30/2017 SUBJECTIVE: This patient looks a little bit better today. She is still complaining of right upper extremity pain. Family members at the bedside. This patient has had a decrease of appetite but with the help of the family she is eating a little bit better. Physical therapy is on board. She has a history of CHF as well and I put her back on her medications. She has been on metoprolol, aspirin and also for coronary artery disease she has been on Plavix. OBJECTIVE: Vital Signs: Temperature 98 degrees, pulse 122, respiratory rate 18, blood pressure 170/89, O2 saturation 99 on room air. HEENT: Head normocephalic. No trauma. PERRLA. Neck: Supple. No JVD. No masses. Central trachea. Chest: Clear to auscultation. No wheezing. No rales. Decreased breath sounds at the bases with prolonged expiratory phase. Cardiovascular: RRR. Abdomen: Soft, nontender, nondistended. Positive bowel sounds. Extremities: Right hand edema and a new dressing. The index finger has been amputated. The swelling looks much better but she still has redness and pain up to the elbow. Neurological: The patient is alert. She is oriented x2. She is not oriented in time, and sometimes she is confused. She moves all 4 extremities. She follows commands. LABORATORY: WBC 19.7, hemoglobin 9.4, hematocrit 29.5, platelets 351,000. Sodium 137, potassium 3.5, chloride 108, bicarbonate 18. BUN 14, creatinine 0.5, glucose 143, calcium 8.1. ASSESSMENT AND PLAN: 1. Right hand cellulitis. Continue with antibiotics. This patient has been followed by Infectious Disease Department. At this moment this patient is getting ceftriaxone 1 g every 12 hours. The swelling looks better but she is still having cellulitis up to the elbow. 2. Right index finger ischemic, is status post amputation as above. 3. COPD not in exacerbation. She is breathing fine at this moment. 4. Hypertension. Blood pressure is a little bit elevated. I put this patient back on her medications. 5. Interstitial edema. This is getting better clinically. I ordered a chest x-ray today. 6. History of CHF. I put this patient back on metoprolol and I decreased the amount of fluid. She was on normal saline at 75 mL/h and now just to 10 per hour. 7. Type 2 diabetes. Her hemoglobin A1c is 7.3. Yesterday she was a little bit dehydrated and this is why she received fluid. Today she looks better and she is tolerating a little bit more the diet. Continue with the sliding scale and pattern of blood sugar. 8. Leukocytosis. Continue with antibiotics. Infectious Disease Department is following this patient. cc: Pradip Barnhart MD
[2017-01-30] MEDS: AMBIEN PO SCH (21:40)
[2017-01-30] MEDS: CRESTOR PO SCH (21:40)
[2017-01-31] MEDS: DUONEB (A & A) INH SCH ×6 (03:33→22:28)
[2017-01-31] MEDS: ROCEPHIN 1 GM/NS 1 GM/50 ML IVPB IV SCH ×2 (04:19→16:52)
[2017-01-31] MEDS: HUMULIN R SUBQ SCH ×4 (06:02→21:20)
[2017-01-31 06:55] LABS: MANUAL DIFF NEEDED? NO
[2017-01-31 07:06] LABS: BASO% 0.1 % (0.0-0.8); EOS# 0.08 X1000 (0.0-0.7); EOS% 0.7 % (0.0-10.0); HEMATOCRIT 29.2 % (37.0-47.0); HEMOGLOBIN 9.1 g/dL (12.0-16.0); IMM GRAN# 0.05 X1000 (0.0-0.04); IMM GRAN% 0.4 % (0.0-0.5); LYMPH# 0.53 X1000 (1.2-3.4); LYMPH% 4.7 % (20.5-51.1); MCH 23.9 PG (27-31); MCHC 31.2 g/dL (33-37); MCV 76.6 FL (81-99); MONO# 1.36 X1000 (0.11-0.59); MONO% 12.1 % (1.7-9.3); MPV 9.6 FL (7.4-10.4); PLT 331 X1000 (130-400); RBC 3.81 XMIL (4.2-5.4)
[2017-01-31 07:48] LABS: AGAP 14; BUN 13 mg/dL (8-22); CALCIUM 8.3 mg/dL (8.8-10.2); CHLORIDE 104 mmol/L (98-107); COSMO 288; POTASSIUM 3.1 mmol/L (3.5-5.1); SODIUM 142 mmol/L (136-145); TCO2 24 mmol/L (25-35)
[2017-01-31] MEDS: LOPRESSOR PO SCH (09:14)
[2017-01-31] MEDS: ASPIRIN PO SCH (09:14)
[2017-01-31] MEDS: PLAVIX PO SCH (09:14)
[2017-01-31] MEDS: FERROUS SULFATE PO SCH (09:15)
--- NOTE | 2017-01-31 11:36 | PROGRESS NOTE ---
DATE: 01/31/2017 Ms. Dee is status post a right finger amputation per Dr. Jaramillo. She has had significant decrease in the swelling involving her right forearm and hand. The cellulitis has also improved on IV antibiotics and with this amputation. We are dressing the wound daily. Clinically, she is improving. She is even more alert and wants to be more active. She is tolerating a diabetic diet. cc: Lidia Weeks MD
[2017-01-31] MEDS: NORCO-5 PO PRN ×2 (16:52→23:58)
--- NOTE | 2017-01-31 17:31 | PROGRESS NOTE ---
DATE: 01/31/2017 SUBJECTIVE: This patient looks much better today. She is more alert. She is more oriented. She is tolerating her diet better. The swelling and pain at the level of the right upper extremity is much better. Physical therapy is on board. For now, I will continue with the same medications and I will talk hopefully tomorrow with the infectious disease department to decide what kind of treatment she is going to get at home. OBJECTIVE: Vital Signs: Temperature 97.7 degrees, pulse 75, respiratory rate 20, blood pressure 147/67, oxygen saturation 98 on room air. HEENT: Head normocephalic. No trauma. PERRLA. Neck: Supple. No JVD. No masses. Central trachea. Chest: Clear to auscultation. No wheezing. No rales. Decreased breath sounds at the bases with prolonged expiatory phase. Cardiovascular: RRR. Abdomen: Soft, nontender, nondistended. Positive bowel sounds. Extremities: The right hand edema and new dressing. The index finger has been amputated. The swelling looks much better but she still has some redness and mild pain up to the elbow but again, compared with yesterday it is much better. Neurological: The patient is alert and oriented x3. She moves all 4 extremities. She follows commands. She is answering all my questions. LABORATORY: WBC 11.2, hemoglobin 9.1, hematocrit 29.2, platelet 331,000. Sodium 142, potassium 3.1, chloride 104, bicarbonate 24, BUN 13, creatinine 0.4, glucose 187, calcium 8.3. ASSESSMENT AND PLAN: 1. Right hand cellulitis. Continue with antibiotics. This patient has been followed by infectious disease department. She is getting ceftriaxone 1 g every 12 hours. The swelling looks much better and the redness and pain is getting better as well. 2. 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 3. Chronic obstructive pulmonary disease, not in exacerbation. She is breathing fine at this moment. 4. Hypertension, stable. Continue to monitor. 5. Interstitial lung edema, resolved. 6. History of congestive heart failure. Continue with home medication. 7. Type 2 diabetes. Hemoglobin A1c 7.3. Continue with sliding scale insulin and pattern of blood sugar. 8. Leukocytosis. Much better. Continue with antibiotics. cc: Pradip Barnhart MD
[2017-01-31] MEDS: NS 1,000 ML IV SCH (18:19)
[2017-01-31 20:53] LABS: AGAP 13; BUN 15 mg/dL (8-22); CALCIUM 8.7 mg/dL (8.8-10.2); CHLORIDE 101 mmol/L (98-107); COSMO 285; MAGNESIUM 1.3 mg/dL (1.5-2.7); POTASSIUM 3.3 mmol/L (3.5-5.1); SODIUM 138 mmol/L (136-145); TCO2 24 mmol/L (25-35)
[2017-01-31] MEDS: AMBIEN PO SCH (21:20)
[2017-01-31] MEDS: CRESTOR PO SCH (21:20)
[2017-01-31] MEDS ORDERED: KLOR-CON PO ONE (23:20)
[2017-01-31] MEDS ORDERED: MAGNESIUM SULFATE 1 GM/D5W 1 GM/100 ML IVPB IV ONE (23:20)
[2017-02-01] MEDS: DUONEB (A & A) INH SCH ×7 (03:26→23:13)
[2017-02-01] MEDS: ROCEPHIN 1 GM/NS 1 GM/50 ML IVPB IV SCH ×2 (04:57→17:24)
--- NOTE | 2017-02-01 05:51 | EKG Report ---
Test Performed on : 01/31/2017 7:00:53 PM Test Reason : run of Check Blood Pressure : / mmHG Vent. Rate : 102 BPM Atrial Rate : 102 BPM P-R Int : 192 ms QRS Dur : 094 ms QT Int : 354 ms P-R-T Axes : 081 078 079 degrees QTc Int : 461 ms Sinus tachycardia. Minimal voltage criteria for LVH, may be normal variant Septal infarct (cited on or before 19-JUL-2016) Abnormal ECG When compared with ECG of 19-JUL-2016 08:21, Nonspecific T wave abnormality, worse in Lateral leads Confirmed by Tay Benjamin MD ([id number]) on 02/01/2017 10:56:41 AM
[2017-02-01] MEDS: HUMULIN R SUBQ SCH ×4 (06:03→21:46)
[2017-02-01 07:00] LABS: MANUAL DIFF NEEDED? NO
[2017-02-01 07:15] LABS: BASO% 0.2 % (0.0-0.8); EOS# 0.18 X1000 (0.0-0.7); EOS% 1.6 % (0.0-10.0); HEMATOCRIT 29.9 % (37.0-47.0); HEMOGLOBIN 9.4 g/dL (12.0-16.0); IMM GRAN# 0.04 X1000 (0.0-0.04); IMM GRAN% 0.4 % (0.0-0.5); LYMPH# 0.85 X1000 (1.2-3.4); LYMPH% 7.7 % (20.5-51.1); MCH 24.1 PG (27-31); MCHC 31.4 g/dL (33-37); MCV 76.7 FL (81-99); MONO# 1.23 X1000 (0.11-0.59); MONO% 11.1 % (1.7-9.3); MPV 9.1 FL (7.4-10.4); PLT 322 X1000 (130-400)
[2017-02-01 07:32] LABS: AGAP 12; BUN 14 mg/dL (8-22); CALCIUM 8.2 mg/dL (8.8-10.2); CHLORIDE 104 mmol/L (98-107); COSMO 287; POTASSIUM 3.9 mmol/L (3.5-5.1); SODIUM 142 mmol/L (136-145); TCO2 26 mmol/L (25-35)
[2017-02-01] MEDS: LOPRESSOR PO SCH (09:58)
[2017-02-01] MEDS: PLAVIX PO SCH (09:58)
[2017-02-01] MEDS: FERROUS SULFATE PO SCH (09:58)
[2017-02-01] MEDS: ASPIRIN PO SCH (09:58)
[2017-02-01] MEDS ORDERED: NS 250 ML ONE (12:32)
[2017-02-01 13:04] LABS: INR 0.96; PROTIME 10.1 Seconds (9.2-11.7)
[2017-02-01] MEDS: NORCO-5 PO PRN ×2 (13:13→19:57)
--- NOTE | 2017-02-01 13:17 | PROGRESS NOTE ---
DATE: 02/01/2017 SUBJECTIVE: This patient looks much better today. She is more alert. She is oriented. She is tolerating her diet better. The swelling and pain at the level of the right upper extremity is much better as well. Physical therapy is on board. I asked today for a PICC line, hopefully Dr. Bustamante from Infectious Disease Department evaluated this patient, and this patient is going to be able to be discharged either today or tomorrow with IV antibiotics. OBJECTIVE: Vital Signs: Temperature 98 degrees, pulse 106, respiratory rate 16, blood pressure 142/60, O2 saturation 96% on room air. HEENT: Head normocephalic. No trauma. PERRLA. Neck: Supple. No JVD. No masses. Central trachea. Chest: Clear to auscultation. No wheezing. No rales. Decreased breath sounds at the bases with prolonged expiratory phase. Cardiovascular: RRR. Abdomen: Soft, nontender, nondistended. Positive bowel sounds. Extremities: The right hand has edema and a new dressing, her right index finger has been amputated. The swelling looks much better, but she still has some redness, but compared with the previous days she is much better. She is moving all the joints. Neurological: The patient is alert and oriented x 3. She moves she moves all 4 extremities. She follows commands. She is answering all my questions. LABORATORY: WBC 11.1, hemoglobin 9.4, hematocrit 29.9, platelets 322,000, sodium 142, potassium 3.9, chloride 104, bicarbonate 26, BUN 14, creatinine 0.4, glucose 155, calcium 8.2. ASSESSMENT AND PLAN: 1. Right hand cellulitis. Continue with antibiotics. I have ordered a PICC line to be placed today. Hopefully I am going to be able to discharge this patient either today or tomorrow morning and we will continue with the same antibiotics as per Infectious Disease Department. 2. Right index finger ischemia, status post amputation as above. 3. Chronic obstructive pulmonary disease not in exacerbation. She is breathing fine, continue with the same management. 4. Hypertension stable. Continue to monitor. I restarted today her spironolactone. 5. Interstitial lung edema resolved. 6. Congestive heart failure. Continue with home medication. 7. Type 2 diabetes. For now, I will continue with sliding scale insulin and pattern blood sugars. She is on metformin at home. 8. Leukocytosis much better. Continue with antibiotics. cc: Pradip Barnhart MD
--- NOTE | 2017-02-01 14:05 | PROGRESS NOTE ---
DATE: 02/01/2017 SUBJECTIVE: Improved pain and swelling in her hand. OBJECTIVE: No fevers. No tachycardia. Blood pressure 142/60, O2 saturation 100% on 2 L. Right hand with decreased pain, swelling, and erythema. Incision is granulating well with no pus. LABORATORY DATA: White count down to 11, hematocrit is 29. Creatinine is 0.4. Glucose 155. ASSESSMENT/PLAN: This is a 66-year-old female with infected necrosis of the right index finger status post amputation. Wound is healing well and her cellulitis is improving. Continue broad- spectrum antibiotics. We will continue follow along, twice daily wet-to-dry dressings. cc: Jonn Jaramillo MD
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
[2017-02-01] MEDS: MYCOSTATIN SUSP PO SCH ×2 (17:23→21:45)
[2017-02-01] MEDS: ALDACTONE PO SCH (21:45)
[2017-02-01] MEDS: AMBIEN PO SCH (21:45)
[2017-02-01] MEDS: CRESTOR PO SCH (21:45)
[2017-02-02] MEDS: NS 1,000 ML IV SCH ×2 (01:37→11:52)
[2017-02-02] MEDS: NORCO-5 PO PRN ×2 (01:53→11:53)
[2017-02-02] MEDS: DUONEB (A & A) INH SCH ×4 (03:47→15:56)
[2017-02-02] MEDS: ROCEPHIN 1 GM/NS 1 GM/50 ML IVPB IV SCH ×2 (04:21→14:56)
[2017-02-02] MEDS: HUMULIN R SUBQ SCH ×2 (06:08→13:01)
[2017-02-02 06:43] LABS: MANUAL DIFF NEEDED? NO
[2017-02-02 07:03] LABS: AGAP 10; BUN 12 mg/dL (8-22); CALCIUM 8.2 mg/dL (8.8-10.2); CHLORIDE 99 mmol/L (98-107); COSMO 279; POTASSIUM 3.8 mmol/L (3.5-5.1); SODIUM 138 mmol/L (136-145); TCO2 29 mmol/L (25-35)
[2017-02-02 07:25] LABS: BASO% 0.2 % (0.0-0.8); EOS# 0.16 X1000 (0.0-0.7); EOS% 1.6 % (0.0-10.0); HEMATOCRIT 30.3 % (37.0-47.0); HEMOGLOBIN 9.4 g/dL (12.0-16.0); LYMPH# 0.89 X1000 (1.2-3.4); LYMPH% 8.9 % (20.5-51.1); MCH 24.2 PG (27-31); MCV 78.1 FL (81-99); MONO# 1.26 X1000 (0.11-0.59); MONO% 12.7 % (1.7-9.3); MPV 9.8 FL (7.4-10.4); NEUT% 76.6 % (42.2-75.2); PLT 297 X1000 (130-400); RBC 3.88 XMIL (4.2-5.4)
[2017-02-02] MEDS: PLAVIX PO SCH (09:26)
[2017-02-02] MEDS: ALDACTONE PO SCH (09:26)
[2017-02-02] MEDS: ASPIRIN PO SCH (09:26)
[2017-02-02] MEDS: LOPRESSOR PO SCH (09:26)
[2017-02-02] MEDS: FERROUS SULFATE PO SCH (09:27)
[2017-02-02] MEDS: MYCOSTATIN SUSP PO SCH ×2 (09:27→13:38)
--- NOTE | 2017-02-02 11:38 | PROGRESS NOTE ---
DATE: 02/02/2017 SUBJECTIVE: Feels better. More alert and less pain in her hand. OBJECTIVE: Vital Signs: No fevers. Pulse is in the 90s to low 100s. Blood pressure 140/81, 97% on 2 L. Extremities: Her right hand with much improved cellulitis and swelling. Her surgical site is clean. There is no necrotic tissue. Laboratory Data: Her white count is 9, hematocrit is 30. Creatinine is 0.4. ASSESSMENT AND PLAN: A 66-year-old female with severe cellulitis and infection of the right hand with an ischemic and infected right index finger, status post amputation, doing well. We will continue broad-spectrum antibiotics. Dr. Bustamante is following. cc: Jonn Jaramillo MD
[2017-02-02 15:37] VITALS: BP 140/80
--- NOTE | 2017-02-02 18:35 | DISCHARGE SUMMARY ---
ADMISSION DATE: 01/27/2017 DISCHARGE DATE: 02/02/2017 CONSULTATIONS: 1. Adi Jaramillo MD with General Surgery. 2. Joe Bustamante MD with Infectious Disease. PERTINENT PROCEDURES: Amputation of right index finger secondary to infected ischemic necrosis. DISCHARGE DIAGNOSES: 1. Right hand cellulitis. Will continue with IV antibiotics. The patient has had a PICC line placed. We will continue with IV Rocephin with [facility] 1 g every 12 hours for 2 weeks. She will see Dr. Bustamante back in the office in 3 weeks and then in 6 weeks if everything looks good she will get her PICC line out and start low-dose p.o. penicillin. 2. Right index finger ischemia status post amputation with Dr. Jaramillo. Continue on broad- spectrum antibiotics. She will be followed by home health for wound care. 3. Chronic obstructive pulmonary disease without exacerbation. Continue with home medicines. 4. Hypertension stable. 5. Interstitial lung edema resolved. 6. Congestive heart failure without exacerbation. Continue home medicines. 7. Diabetes mellitus type 2. Continue metformin at home. 8. Leukocytosis improved. HOSPITAL COURSE: Briefly, Ms. Dee is a 66-year-old female with a history of COPD, hypertension, coronary artery disease who presented to the ED with a 1-day history of right hand swelling and pain. She was cooking some pork when all of a sudden she poked her finger on an aluminum tray. Thereafter her finger started swelling and started getting red and going up into her wrist. She states the pain was worsening so she came to the ED where she was evaluated she was found to have a moderate amount of redness, tenderness and edema on the right hand consistent with cellulitis. She was started on IV antibiotics. Hand x-ray only showed soft tissue swelling but no bony abnormality. Dr. Adi Jaramillo was consulted, he did determine that her right index finger was ischemic either from the tourniquet which she had placed or from the local infection. There was also the possibility that it could be a necrotizing process extending up her arm. He discussed this at length with the patient. They decided to go ahead with amputation. She underwent amputation of her right index finger on 01/27/[address] Jaramillo. The patient tolerated the procedure well. She was on wet-to-dry dressings b.i.d. as well as broad-spectrum antibiotics for which Dr. Joe Bustamante was brought in. The patient's wound is healing well. Her cellulitis is improving. She will continue with twice daily wet-to-dry dressings. [facility] has been contacted for home health as well as IV antibiotics with [facility]. The patient is being discharged home today. At some point because of the antibiotics the patient did develop some oral thrush for which Dr. Bustamante has ordered Mycostatin swish and swallow 4 times a day for a total of 18 days, and she will receive Rocephin 1 g IV q.12 hours for 2 weeks. He will see the patient back in his office in 3 weeks, and In 6 weeks if everything looks good hopefully they will be able to get the PICC line out and start low-dose p.o. penicillin. VITAL SIGNS AT TIME OF DISCHARGE: Temperature is 98.5 degrees, heart rate 105, respirations 18, blood pressure 148/81, O2 is 97% on room air. DISCHARGE DIET: Diabetic. DISCHARGE MEDICATIONS: 1. Rocephin 1 g IV q.12 hours for [address] Joe Bustamante. 2. Mycostatin 5 mL swish and swallow 4 times a day for 18 days. 3. Plavix 75 mg p.o. daily. 4. Ferrous sulfate 325 mg p.o. daily. 5. [place] 5/325, 1 each p.o. q.6 hours p.r.n. 6. Toprol 50 mg p.o. daily. 7. Crestor 10 mg p.o. at bedtime. 8. Lactone 12.5 mg p.o. b.i.d. 9. Ambien 5 mg p.o. at bedtime. 10. Aspirin 325 mg p.o. daily. 11. Symbicort 164.5 mcg inhaler 1 puff inhaled RT b.i.d. 12. Robitussin DM 1 tab p.o. q.4 hours p.r.n. 13. Zestril 10 mg p.o. q.a.m. 14. Metformin 1000 mg p.o. b.i.d. 15. Prilosec 20 mg p.o. daily. 16. Spiriva 1 puff inhaled at bedtime. FOLLOWUP: 1. The patient is being discharged home with home health as well as IV antibiotics with [facility]. 2. She will follow up with Dr. Joe Bustamante in 3 weeks. 3. She is also going home with home health. She will continue wet-to-dry dressings b.i.d. 4. Patient will follow up with Dr. Jaramillo in the office. 5. Patient can return to the ED for any worsening of symptoms. DISCHARGE TIME: Greater than 30 minutes. Dictated by STEPAN Tello for Jung Em MD cc: Jung Em MD MTDD
== END 2017-02-02 16:31 | disposition home health service (06) ==
LOC: ED 21:17 → SUATTDRO 01-27 02:33 → 3N 01-27 02:33
PROVIDERS: ATTEND Internal Medicine

== ENCOUNTER 2017-02-13 08:50 | Inpatient (IN) ==
[2017-02-13] MEDS ORDERED: ATIVAN ONE (08:56)
[2017-02-13] MEDS ORDERED: SOLU-MEDROL IV ONE (08:58)
[2017-02-13] MEDS ORDERED: DUONEB (A & A) INH ONE (08:58)
[2017-02-13] MEDS ORDERED: ATIVAN IV ONE (08:58)
[2017-02-13] MEDS ORDERED: PULMICORT INH ONE (08:59)
[2017-02-13] MEDS ORDERED: SOLU-MEDROL ONE (08:59)
[2017-02-13 09:13] LABS: ALLEN TEST YES; BLOOD TYPE ARTERIAL; DRAW SITE L RADIAL; METHB 0.9 % (0.0-1.5); O2(CT) 12.5 mL/dL (15.0-23.0); PCO2(98.6) 44 mmHg (35-45); PO2(98.6) 151 mmHg (60-100); SAMPLE BLOOD; SAO2 99.6 % (95.0-100.0); THB 8.9 g/dL (11.5-17.4); pH(98.6) 7.34 (7.35-7.45)
[2017-02-13 09:15] LABS: MODALITY CANNULA
[2017-02-13 09:56] LABS: MANUAL DIFF NEEDED? NO
[2017-02-13 10:01] LABS: BASO% 0.4 % (0.0-0.8); EOS# 0.12 X1000 (0.0-0.7); EOS% 1.1 % (0.0-10.0); HEMATOCRIT 28.2 % (37.0-47.0); HEMOGLOBIN 8.8 g/dL (12.0-16.0); IMM GRAN# 0.03 X1000 (0.0-0.04); IMM GRAN% 0.3 % (0.0-0.5); LYMPH# 1.33 X1000 (1.2-3.4); LYMPH% 11.9 % (20.5-51.1); MCH 24.8 PG (27-31); MCHC 31.2 g/dL (33-37); MCV 79.4 FL (81-99); MPV 9.5 FL (7.4-10.4); NEUT% 77.3 % (42.2-75.2); PLT 727 X1000 (130-400); RBC 3.55 XMIL (4.2-5.4)
[2017-02-13 10:06] LABS: INR 1.06; PROTIME 11.2 Seconds (9.2-11.7); PTT 26.3 Seconds (22.0-36.0)
[2017-02-13 10:13] LABS: URINE MICRO REVIEW NEEDED? NO; URINE SOURCE CATH
[2017-02-13 10:17] LABS: BILIRUBIN URINE NEGATIVE (NEGATIVE); BLOOD URINE NEGATIVE (NEGATIVE); COLOR YELLOW; GLUCOSE URINE >1000 mg/dL (NEGATIVE); LEUKOCYTES URINE NEGATIVE (NEGATIVE); NITRITE URINE NEGATIVE (NEGATIVE); PH URINE 5.5; PROTEIN URINE 70 mg/dL (NEGATIVE); SP GRAVITY URINE 1.027; TURBIDITY URINE CLEAR (CLEAR); UR EPITHELIAL CELLS <10 /HPF (<10); URINE BACTERIA NEGATIVE /HPF; URINE CULTURE NEEDED? YES; URINE RBC <10 /HPF (<10); UROBILINOGEN URINE NORMAL (NORMAL)
[2017-02-13 10:37] LABS: AGAP 14; ALBUMIN 3.5 g/dL (3.5-5.0); ALKALINE PHOSPHATASE 97 U/L (32-104); BUN 15 mg/dL (8-22); CALCIUM 8.6 mg/dL (8.8-10.2); CHLORIDE 100 mmol/L (98-107); CK PROFILE 49 U/L (24-173); COSMO 289; GOT 11 U/L (10-30); GPT 13 U/L (10-36); MAGNESIUM 1.5 mg/dL (1.5-2.7); SODIUM 138 mmol/L (136-145); TCO2 24 mmol/L (25-35); TOTAL BILIRUBIN 0.21 mg/dL (0.20-1.00); TOTAL PROTEIN 5.8 g/dL (6.3-8.3)
--- NOTE | 2017-02-13 11:12 | ED EKG INTERP ---
This chart was entered by Shelley Nick Scribe, acting as scribe for Dianne Stauffer MD. EKG Interpretation - EKG Time of EKG reading by physician:: 09:15 EKG Read and Signed by:: Dianne Stauffer EKG Interpretation (*Must complete 3 of following elements*): Abnormal Rate: 97 Rhythm: NSR QRS: LVH, other Comments: POSS LAE, NONSPECIFIC T WAVE ABNORMALITY This chart was documented by the indicated scribe, (Shelley Nick Scribe) and accurately reflects the services I performed and decisions made by me, Dianne Stauffer MD, as attested by the provider's signature.
--- NOTE | 2017-02-13 11:13 | PROVIDER DOCUMENTATION ---
This chart was entered by Shelley Nick Scribe, acting as scribe for Dianne Stauffer MD. HPI-General Adult - General Chief Complaint: Shortness of Breath Stated Complaint: SOB Time Seen by Provider: 02/13/17 08:51 Source: patient Allergies/Adverse Reactions: Patient Allergies Allergy/AdvReac Type Severity Reaction Status Date / Time No Known Allergies Allergy Verified 02/13/17 09:28 Home Medications: Home Medication List Medication Instructions Recorded Confirmed Last Taken Type Lisinopril [Zestril] 10 mg PO QAM 09/04/12 02/13/17 02/13/17 06:00 History Rosuvastatin Calcium [Crestor] 10 mg PO HS 09/04/12 02/13/17 02/13/17 08:00 History Spironolactone 12.5 mg PO BID 09/04/12 02/13/17 02/13/17 06:00 History Tiotropium [place] Inhaler 1 puff INH QHS 09/04/12 02/13/17 02/12/17 12:00 History [Spiriva] Zolpidem [Ambien] 5 mg PO QHS 09/04/12 02/13/17 02/12/17 23:00 History Budesonide/Formoterol Inhaler 1 puff INH RTBID 08/05/15 02/13/17 02/12/17 23:00 History [Symbicort 160/4.5 Microgm Inhaler] Aspirin 81 mg PO DAILY 07/19/16 02/13/17 02/13/17 06:00 History Guaifenesin/Dm [Robitussin-Dm] 1 tab PO Q4H PRN PRN 07/19/16 02/13/17 02/11/17 06:00 History Clopidogrel Bisulfate [Plavix] 75 mg PO DAILY 01/27/17 02/13/17 02/13/17 06:00 History Ferrous Sulfate 325 mg PO DAILY 01/27/17 02/13/17 02/13/17 06:00 History Metformin HCl 1,000 mg PO BID 01/27/17 02/13/17 02/12/17 17:00 History Metoprolol Tartrate 50 mg PO DAILY 01/27/17 02/13/17 02/13/17 06:00 History Omeprazole 20 mg PO DAILY 01/27/17 02/13/17 02/12/17 22:00 History - History of Present Illness -Gen Adult Nature of Presenting Problems: PT IS A 66YOF PRESENTING TO THE ED C/O SOB. PT STATES SHE WOKE THIS AM UNABLE TO BREATHE. PT HAS A HISTORY OF COPD AND ANXIETY. PT IS DIAPHORETIC BUT ABLE TO SPEAK IN FULL SENTENCES AT THIS TIME. SHE IS EXTREMELY ANXIOUS BUT DOES NOT USE HOME O2 FOR COPD, UPON ARRIVAL HER SATURATION WAS 91% BUT WITH NC ON 2LPM PTS OXYGEN SATURATION HAS IMPROVED. NO OTHER COMPLAINTS AT THIS TIME. Location of Pain/Injury: reports: generalized Pain Radiation: reports: no radiation Quality of Pain: reports: none Severity: reports: moderate Onset/Duration: reports: just prior to arrival Timing: reports: still present Context/Activities at Onset: reports: light activity Modifying Factors: improves with: breathing, rest. worse with: coughing Associated Symptoms: reports: anxiety, shortness of breath, weakness. denies: arm pain, back/neck pain, chest pain Similar Symptoms Previously?: Yes Recently seen or treated by another doctor?: No Review of Systems - Adult - REVIEW OF SYSTEMS - ADULT Constitutional: reports: see HPI, fatique. denies: chills, night sweats Eyes: reports: no symptoms reported Ears, Nose, Mouth & Throat: reports: no symptoms reported Cardiovascular: reports: see HPI, palpitations. denies: chest pain, syncope Respiratory: reports: see HPI, dyspnea on exertion, shortness of breath, wheezing. denies: excessive sputum production Gastrointestinal: reports: no symptoms reported Genitourinary: reports: no symptoms reported Musculoskeletal: reports: no symptoms reported Integumentary: reports: no symptoms reported Neurological: reports: no symptoms reported Psychiatric: reports: see HPI, anxiety. denies: depression, insomnia Endocrine: reports: no symptoms reported Hematologic/Lymphatic: reports: no symptoms reported Allergic/Immunologic: reports: no symptoms reported All Other Systems: Reviewed and Negative Past History - Adult - PAST MEDICAL HISTORY-ADULT Review of Records: reports: Old Records Reviewed, Nursing Assessment Review, Medications Reviewed, Social history reviewed & non-contributory. Major Childhood Illnesses: reports: denies history Cardiovascular: reports: HTN, hyperlipidemia, SC, pacemaker Respiratory: reports: COPD Gastrointestinal: reports: denies history Obstetrical/Gynecological: reports: denies history Genitourinary: reports: denies history Musculoskeletal: reports: denies history Neurological: reports: CVA Psychiatric: reports: depression Endocrine/Immune: reports: Diabetes Other Conditions: reports: denies history - PRIOR SURGERIES/PROCEDURES Surgical/Procedure History: reports: cardiac stent, tonsillectomy - IMMUNIZATION STATUS Childhood Immunizations: See Nurse Assessment Flu Vaccine: See Nurse Assessment - FAMILY HISTORY Family History: reviewed, not pertinent - SOCIAL HISTORY Smoking: quit greater than 1 year Substance Use: none/never, denies Alcohol Use Frequency: never Living Situation: family Physical Exam-General - PHYSICAL EXAM-ADULT Initial Vital Signs Reviewed: Yes - CONSTITUTIONAL General Appearance: alert, moderate distress, anxious. negative: appears well - EYES Eyes: PERRL/EOMI, pink conjunctivae - HEAD, EARS, NOSE, MOUTH & THROAT HENMT: normocephalic/atraumatic, moist mucous membranes, normal ENT inspection, TMs normal, pharynx normal - NECK Neck: non-tender, full range of motion, supple, normal inspection - RESPIRATORY Respiratory: chest non-tender, no pleuratic chest pain, respiratory distress, accessory muscle use, wheezing, retractions. negative: lungs clear, normal breath sounds, no respiratory distress, no accessory muscle use - CARDIOVASCULAR Cardiovascular: normal peripheral pulses, no edema, no gallop, no JVD, no murmur , tachycardia. negative: regular rate, rhythm - GASTROINTESTINAL (ABDOMEN) Abdominal Exam: normal bowel sounds, non tender, soft, no organomegaly, no pulsatile mass - LYMPHATIC Lymphatic: no adenopathy - MUSCULOSKELETAL Back Exam: normal inspection, no CVA tenderness, no vertebral tenderness Extremity: normal range of motion, non-tender, no pedal edema, no calf tenderness, normal capillary refill, pelvis stable. negative: normal gait, normal inspection - SKIN Integumentary: normal turgor, warm/dry, pallor. negative: normal color - NEUROLOGIC Neurologic: labor mediator II-XII nml as tested, grossly normal, no motor/sensory deficits - PSYCHIATRIC Psych/Mental Status: normal thought content, normal thought process, oriented x 3, anxious, disheveled. negative: normal mood/affect Progress - PLAN OF CARE/RESULTS Progress/Plan/Lab Results: Vital Signs - 8 hr 02/13/17 08:55 Pulse Rate 120 H Respiratory Rate 22 Blood Pressure 154/98 O2 Sat by Pulse Oximetry 100 Orders Category Date Time Status ABG [RESP] Routine Lab 02/13/17 08:53 Ordered Albuterol 2.5MG/Ipratrop 0.5MG [Duoneb (A & A)] Med 02/13/17 08:58 Discontinued 3 ml INH NOW ONE Lorazepam [Ativan] Med 02/13/17 08:58 Discontinued 1 mg IV NOW ONE Lorazepam [Ativan] Med 02/13/17 08:56 Discontinued 2 mg .ROUTE .STK-MED ONE Methylprednisolone Sod Succ [Solu-Medrol] Med 02/13/17 08:58 Discontinued 125 mg IV NOW ONE Aerosol Treatments Routine Oth 02/13/17 08:58 Active Aerosol Treatments Stat Oth 02/13/17 08:58 Active Result Diagrams: 02/13/17 09:10 02/13/17 09:10 - REASSESSMENT Reassessment #1 Time Reassessed: 12:04 Status: improving (Pt is doing much better. Will admit to Dr. Fermin.) - CONSULTS/PCP/HOSPITALIST Notification #1 *Consult/PCP/Hospitalist*: Dr. Tse/Zander Time Discussed: 12:05 Reason/Comments: Admit to Dr. Johnson Consult Disposition: Admit Departure - Departure Date of Disposition Decision: 02/13/17 Time of Disposition Decision: 12:05 DIAGNOSIS: COPD exacerbation, Respiratory failure, Anxiety Pneumonia Qualifiers: Pneumonia type: due to unspecified organism Laterality: bilateral Lung location : lower lobe of lung Qualified Code(s): J18.9 - Pneumonia, unspecified organism Disposition: ADMITTED INPATIENT 09 Certified Medical Emergency: Emergent Condition: Stable Referrals and Follow-Ups: None,PCP [Primary Care Provider] - - Critical Care Note This patient required my direct & personal management of CC.: No This chart was documented by the indicated scribe, (Shelley Nick Scribe) and accurately reflects the services I performed and decisions made by me, Dianne Stauffer MD, as attested by the provider's signature.
[2017-02-13] MEDS ORDERED: LEVAQUIN 750 MG/D5W 750 MG/150 ML IVPB IV ONE (11:24)
--- NOTE | 2017-02-13 11:45 | Diag Imaging Result Doc PS360 ---
EXAM: ANGIOGRAM/PULMONARY ARTERIES INDICATION: SOB with elevated D-dimer COMPARISON: 07/19/2016 FINDINGS: There is no evidence of pulmonary embolism. There are patchy atherosclerotic calcifications involving the thoracic aorta. There is no evidence of aortic aneurysm or dissection. The heart is enlarged but stable. There are a few calcified mediastinal lymph nodes indicating prior granulomatous disease. There appears to be nonspecific mediastinal and right hilar lymphadenopathy. This is probably reactive. There is severe pulmonary emphysema. There is a small nodule at the medial aspect of the left lung apex that has exhibited stability as far back as 2012 and is compatible with a granuloma. There is vaguely nodular scarring at the right lung apex that is also stable since 2012. There are patchy infiltrates at both lower lobes mainly at the lung bases indicating pneumonia. This is most significant on the right. There are bilateral small pleural effusions. The effusion at the left lung base appears somewhat loculated. There is no pneumothorax. IMPRESSION: 1.Severe pulmonary emphysema. 2.Infiltrates at both lung bases suggesting pneumonia. 3.Bilateral small effusions. 4.Stable cardiomegaly. 5.Mediastinal and hilar lymphadenopathy that is probably reactive. 6.No evidence of pulmonary embolism. 7.Other incidental/nonacute findings detailed above. Electronically signed by Paul Philip 02/13/2017 11:42 AM
--- NOTE | 2017-02-13 12:02 | Diag Imaging Result Doc PS360 ---
EXAM: CHEST-PORTABLE INDICATION: SOB TECHNIQUE: One view COMPARISON: 02/10/2017 FINDINGS: The lungs are hyperinflated, stable. There is increased opacity at the lower lung zones, especially on the right suggesting pneumonia. There is no evidence of pneumothorax. No large pleural fluid collections are identified. The heart is somewhat prominent but stable. IMPRESSION: Bibasilar infiltrates, more prominent on the right, suggesting pneumonia. Electronically signed by Paul Philip 02/13/2017 12:00 PM
[2017-02-13] MEDS ORDERED: VANCOMYCIN IV PER PHARMACY MISC SCH (12:15)
[2017-02-13] MEDS: LASIX IV SCH (12:30)
[2017-02-13 13:01] LABS: IRON SATURATION 6 %; TIBC 316 ug/dL; TOTAL IRON 18 ug/dL (49-151); UNBOUND IRON 298 ug/dL (112-346)
[2017-02-13] MEDS ORDERED: VANCOMYCIN 1.2 GM in NS 250 ML IV ONE (14:00)
[2017-02-13] MEDS ORDERED: DUONEB (A & A) INH PRN (14:23)
--- NOTE | 2017-02-13 14:52 | HISTORY AND PHYSICAL ---
CHIEF COMPLAINT: Shortness of breath. HISTORY OF PRESENT ILLNESS: Ms. Dee is a 66-year-old female, well known to our service, who was recently discharged on 02/02/2017. At that time, she has a right hand cellulitis and ischemic necrosis of the right index finger requiring amputation by Dr. Jaramillo. She was also on antibiotics, followed by Dr. Bustamante. She comes in today with worsening shortness of breath over the past 3-4 days. She reports that she has extreme trouble breathing when she gets up to walk even 10 feet to the bathroom. She denies any chest pain, but does report PND, orthopnea, and lower extremity edema. She denies fever, chills, cough, or congestion. She came to the ER today and was noted to have a proBNP of 5096. An elevated D-dimer prompted a CTA of the chest, which showed severe emphysema infiltrates in both lungs, suggesting pneumonia, stable cardiomegaly, and reactive mediastinal and hilar lymphadenopathy. There was no evidence of PE. As such, blood cultures were started and we placed the patient on antibiotics for healthcare- associated pneumonia with MRSA coverage with vancomycin. Her hemodynamics are stable. She is now going to be admitted for further treatment and evaluation. PAST MEDICAL HISTORY: 1. Recent admission for ischemic right finger, requiring amputation. 2. Congestive heart failure with an EF of 20% to 25%. Last echocardiogram in 2014. 3. COPD. 4. CAD. 5. History of [place], requiring stents. 6. Hypertension. 7. Diabetes mellitus. 8. Iron deficiency anemia. 9. Hyperlipidemia. PAST SURGICAL HISTORY: Recent amputation of the index finger of the right hand , coronary stent placement, pacemaker, tonsillectomy, kidney stone extraction. ALLERGIES: No known drug allergies. REVIEW OF SYSTEMS: Fourteen-point review of systems obtained and found to be negative with the exception of the HPI. HOME MEDICATIONS: Aspirin 81 mg daily. Budesonide/formoterol inhaler as directed. Plavix 75 mg daily. Iron sulfate 325 mg p.o. daily. Robitussin DM as directed. Zestril 10 mg a.m. Metformin 1000 mg p.o. b.i.d. Metformin 50 mg daily. Omeprazole 20 mg daily. Crestor 10 mg at bedtime. Aldactone 12.5 mg p.o. b.i.d. Spiriva 1 puff inhaled at bedtime. Ambien 5 mg p.o. at bedtime. PHYSICAL EXAMINATION: VITAL SIGNS: Blood pressure is 123/61, heart rate 90, respiratory rate 14, O2 saturation 99% on 2L nasal cannula, and temperature is 98.1 degrees. GENERAL: This is a chronically ill- and frail-appearing 66-year-old female, lying in hospital bed in no acute distress. NEUROLOGIC: She is awake, alert, and oriented. She follows commands without focal deficits. HEENT: Head is atraumatic and normocephalic. Pupils are equal, round, and reactive to light. Oral mucosa is moist. Trachea is midline. There is no JVD or carotid bruits. CHEST: Diminished at the bases with crackles and expiratory wheezes. CARDIOVASCULAR: Regular rate and rhythm. S1 and S2 noted. No murmurs, gallops , clicks, or rubs. GASTROINTESTINAL: Soft, nondistended, nontender. Bowel sounds positive. EXTREMITIES: Trace edema. No clubbing or cyanosis. DIAGNOSTIC DATA: CTA: Please see HPI. Chest x-ray: Bibasilar infiltrates, more prominent on the right, suggesting pneumonia. EKG: Normal sinus rhythm, nonspecific T-wave abnormality. WBC 11.14, hemoglobin 8.8, hematocrit 28.2, and platelet count 727,000. PT 11.2 and INR 1.06. ABG shows pH 7.34, CO2 of 44, O2 of 151. Lactate 2.6. Sodium 138, potassium 5 , chloride 100, CO2 of 24, anion gap 14, BUN 15, creatinine 0.6, glucose 324, calcium 8.6, magnesium 1.5, iron 18, percent saturation 6, unsaturated iron binding 298. LFTs within normal limits. Troponin and CKs are negative. proBNP 5096. Protein 5.8. Plasma lactate 3. B12 of 524. UA is negative for urinary tract infection, does show 1000 glucose. ASSESSMENT AND PLAN: 1. Dyspnea: Likely multifactorial, to include heart failure exacerbation, healthcare-associated pneumonia, and chronic obstructive pulmonary disease exacerbation. We will treat all these appropriately and monitor her respiratory status, check daily chest x-rays. 2. Healthcare-associated pneumonia: Given her recent admission to the hospital , will need to cover her for Methicillin-resistant Staphylococcus aureus with vancomycin. We will also broaden covered with Zosyn. We will add breathing treatments, nebulizers, and aggressive pulmonary toilet, and check chest x-rays daily. 3. Congestive heart failure exacerbation: Last recorded echocardiogram was in 2014. Will check another echocardiogram, trend her cardiac enzymes, follow strict intake/ output and daily weights, give IV diuresis, and optimize her medications. 4. Diabetes mellitus: We will discontinue her metformin, and add pattern sugars and sliding scale insulin. 5. Hypertension: Continue her home medications. This is chronic and stable. 6. Iron deficiency anemia. We will continue her Icar. 7. Recent right index finger amputation secondary to ischemia: Will consult Dr. Bustamante for continued IV antibiotics and wound care. 8. Deep vein thrombosis prophylaxis with Lovenox. Further recommendations to follow. Dictated by STEPAN Melgar for Isaac Sanford MD cc: STEPAN Melgar Addendum: I personally evaluated and examined the patient in conjunction to the [employer] LAW CLERK and agreed with his assessment and plans. LENA
[2017-02-13 15:15] LABS: HEMOGLOBIN A1C 7.1 % (4.8-6.0)
[2017-02-13] MEDS: SOLU-MEDROL IV SCH (16:43)
[2017-02-13] MEDS ORDERED: ROCEPHIN 1 GM/NS 1 GM/50 ML IVPB IV SCH (18:00)
[2017-02-13] MEDS: DUONEB (A & A) INH SCH ×2 (19:09→22:45)
[2017-02-13] MEDS: SYMBICORT 160/4.5 MICROGM INHALER INH SCH (19:10)
[2017-02-13] MEDS: SPIRIVA INH SCH (19:11)
[2017-02-13] MEDS: HUMALOG SUBQ SCH ×2 (19:46→21:49)
[2017-02-13] MEDS: ALDACTONE PO SCH (21:48)
[2017-02-13] MEDS: CRESTOR PO SCH (21:48)
[2017-02-13] MEDS ORDERED: SODIUM BICARBONATE 8.4% ONE (22:02)
[2017-02-13] MEDS: AMBIEN PO SCH (22:22)
[2017-02-14] MEDS: SPIRIVA INH SCH ×3 (00:33→22:59)
[2017-02-14] MEDS: LASIX IV SCH ×2 (01:02→12:15)
[2017-02-14] MEDS: SOLU-MEDROL IV SCH ×3 (01:02→22:03)
[2017-02-14] MEDS: DUONEB (A & A) INH SCH ×5 (03:34→22:54)
[2017-02-14 05:49] LABS: HEMATOCRIT 26.5 % (37.0-47.0); HEMOGLOBIN 8.3 g/dL (12.0-16.0); MCH 24.6 PG (27-31); MCHC 31.3 g/dL (33-37); MCV 78.4 FL (81-99); MPV 9.4 FL (7.4-10.4); RBC 3.38 XMIL (4.2-5.4)
[2017-02-14 06:17] LABS: AGAP 14; BUN 15 mg/dL (8-22); CALCIUM 9.1 mg/dL (8.8-10.2); CHLORIDE 99 mmol/L (98-107); COSMO 287; HDL 45 mg/dL (45-65); LDL 58 mg/dL; POTASSIUM 4.6 mmol/L (3.5-5.1); SODIUM 139 mmol/L (136-145); TCO2 26 mmol/L (25-35); TRIGLYCERIDES 68 mg/dL (35-135); VLDL 14 mg/dL
[2017-02-14] MEDS: PRILOSEC PO SCH (06:19)
[2017-02-14] MEDS: HUMALOG SUBQ SCH ×5 (06:19→21:57)
[2017-02-14] MEDS: LOVENOX SUBQ SCH (08:12)
[2017-02-14] MEDS: FERROUS SULFATE PO SCH (08:13)
[2017-02-14] MEDS: ASPIRIN PO SCH (08:14)
[2017-02-14] MEDS: PLAVIX PO SCH (08:14)
[2017-02-14] MEDS: PRINIVIL PO SCH (08:21)
[2017-02-14] MEDS: LOPRESSOR PO SCH (08:21)
[2017-02-14] MEDS: ALDACTONE PO SCH ×2 (08:21→21:58)
--- NOTE | 2017-02-14 08:22 | Diag Imaging Result Doc PS360 ---
EXAM: CHEST-PORTABLE INDICATION: dyspnea TECHNIQUE: One view COMPARISON: 02/13/2017 FINDINGS: There is a left PICC line in stable position. The lower lung zone opacities appear to have improved slightly during the interval. There are no new consolidations appreciated. Cardiac silhouette is stable. IMPRESSION: Interval slight improvement. Electronically signed by Paul Philip 02/14/2017 8:19 AM
--- NOTE | 2017-02-14 14:41 | ECHO REPORT ---
ORDER DATE: 02/13/2017 INDICATION: Congestive heart failure. History of COPD. FINDINGS: 1. The right atrium is likely normal in size. 2. There is moderate tricuspid regurgitation. RV systolic pressure of 55. 3. Normal RV size and systolic function. Linear artifact consistent with device leads is noted in the right heart chambers. 4. Trace pulmonic insufficiency. 5. Likely severe left atrial enlargement by left atrial volume index which is greater than 40. 6. No mitral valve prolapse. There is diffuse thickening of the mitral leaflets, specifically at the tip of the anterior mitral leaflet. In addition, there is apical tenting of the mitral leaflets. Moderate mitral regurgitation. 7. Likely significant dilatation of the left ventricle with an end-diastolic dimension of 5.6. Again, this is likely significantly dilated given the patient's body size. There is severe reduction in LV systolic function with an estimated EF of 20% and global hypokinesis. No evidence of left ventricular hypertrophy. 8. Aortic valve appears to open well although it is somewhat sclerotic. There is no stenosis and no insufficiency. 9. Aorta appears normal in visualized segments. 10. No pericardial effusion seen. cc: MD Aman Lyles CRNP
[2017-02-14] MEDS: VANCOMYCIN 1 GM/NS 1 GM/250 ML IVPB IV SCH (14:46)
--- NOTE | 2017-02-14 16:00 | PROGRESS NOTE ---
DATE: 02/14/2017 PRESENT ILLNESS: The patient was receiving home IV Rocephin for a streptococcal bacteremia which originated from a streptococcal infection of her right index finger. She is admitted to the hospital now with increasing shortness of breath. On chest x-ray the patient has bibasilar infiltrates which could be due to pneumonia, although also could be due to pulmonary venous congestion. The patient has asymptomatic funguria. The patient also had oral candidiasis. MEDICATIONS: The patient at home was on Rocephin. That has been continued since she has been in here and in addition, vancomycin was started. The patient already has received 2 weeks of treatment with IV Rocephin. Patient also at home was receiving Mycostatin swish and swallow. PHYSICAL EXAMINATION: Vital Signs: Temperature is 98.1 degrees, pulse 102, respirations 20, blood pressure 116/54. General: This is a somewhat ill-appearing, elderly female. She is in no acute distress at this time. Lungs: There were few bibasilar rales. Cardiovascular: Heart rate was rapid. It appeared to be regular. Abdomen: Soft and nontender. Extremities: I removed the dressing on the right hand. The patient's wound was closed. There was no erythema and no drainage. Thorax: The patient has a combination pacemaker/defibrillator in place on the left side of the chest. ENT: There were not any white patches on the patient's tongue at this time. LAB AND X-RAY: The patient's CBC shows a white count of 6460, hemoglobin 8.3 and platelet count 581,000. Creatinine is 0.6. GFR is greater than 60. Chest x-ray shows bilateral lower lobe opacities. Blood cultures are pending. Urine grew yeast. ASSESSMENT AND PLAN: The patient is going to be treated for a total of 6 weeks with antibiotics because she has a combined pacemaker/defibrillator in place and this may have become infected hematogenously during the patient's bacteremia which originated from her finger. Therefore, I plan to continue the patient's antibiotic for the streptococcal infection for a total of 6 weeks. The patient already has received 2 weeks of treatment. Assessment is that the patient has a bacteremia and a combination pacemaker/defibrillator in place. She also has bibasilar infiltrates which could be due to pneumonia. My plan is to continue vancomycin for the time being in order to provide coverage for possible pneumonia. In addition I have discontinued Rocephin and instead placed the patient on cefepime. The patient will need 4 more weeks of treatment with cefepime to complete the 6 weeks of treatment because of the patient's bacteremia. I suggested to the patient to take Mycostatin to prevent a recurrence of oral candidiasis but she refused. No treatment is indicated for the patient's asymptomatic funguria. COMORBIDITIES: She is elderly, she suffered a wound to the right finger which became infected and it was a source of a bacteremia. Also she has a defibrillator/pacemaker implanted in the chest and this could have become infected and therefore we will need to treat with antibiotics for a prolonged period. cc: Joe Bustamante MD MTDD
--- NOTE | 2017-02-14 16:08 | PROGRESS NOTE ---
DATE: 02/14/2017 SUBJECTIVE: The patient is feeling much better. Still having some shortness of breath. She denies having any fever or chills. Denies having any productive cough. OBJECTIVE: Vital Signs: Blood pressure 116/54, pulse of 102, respirations 20, temperature 98.1 degrees, saturation 100% on 2 L nasal cannula. General Appearance: Thin, white female in no acute distress. HEENT: Anicteric. Clear conjunctivae. Neck: Supple. No JVD. No bruit. Cardiovascular: S1, S2. Normal rate and rhythm. No murmur, rubs, or gallops. Pulmonary: Crackle at the bases bilaterally. GI: Soft, nontender, nondistended. Normoactive bowel sounds. Musculoskeletal: No clubbing, cyanosis, or edema. She still has the dressing on her right hand due to recent index finger amputation on that affected hand. LABORATORY: White count 6.46, hemoglobin 8.3, hematocrit of 26.5, platelets of 581,000. Chemistry: Sodium 139, potassium 4.6, chloride 99, bicarb 26, BUN 15, creatinine 0.6, glucose of 245. CT angiogram of the chest showed just severe emphysema, infiltrates at the bases suggesting pneumonia. ASSESSMENT AND PLAN: This is a 66-year-old admitted to the hospital for shortness of breath. 1. Shortness of breath, questionable pneumonia versus chronic obstructive pulmonary disease exacerbation. Cultures are still pending. Keep the patient on IV steroids, vancomycin, and cefepime. 2. Osteomyelitis versus cellulitis. The patient has been on 2 weeks of Rocephin at home. She was supposed to be on it for a total of 6 weeks per ID. 3. Systolic heart failure. There is a mild degree of acute exacerbation of systolic congestive heart failure. We will continue Lasix twice a day. Keep the patient on spironolactone. 4. Diabetes. Will continue sliding scale insulin. 5. Code status. The patient is a full code. 6. Deep vein thrombosis prophylaxis. Put the patient on Lovenox.
[2017-02-14] MEDS ORDERED: MAGNESIUM SULFATE 2 GM/S.W.I. 2 GM/50 ML IVPB IV ONE (16:28)
[2017-02-14] MEDS ORDERED: ROCEPHIN 1 GM/NS 1 GM/50 ML IVPB IV SCH (18:00)
[2017-02-14] MEDS: MAXIPIME 1 GM/NS 1 GM/50 ML IVPB IV SCH (18:28)
[2017-02-14] MEDS: SYMBICORT 160/4.5 MICROGM INHALER INH SCH (19:12)
[2017-02-14] MEDS: CRESTOR PO SCH (21:58)
[2017-02-14] MEDS: AMBIEN PO SCH (21:58)
[2017-02-15] MEDS: LASIX IV SCH ×3 (01:50→23:33)
[2017-02-15] MEDS: DUONEB (A & A) INH SCH ×6 (03:20→22:44)
--- NOTE | 2017-02-15 07:17 | EKG Report ---
Test Performed on : 02/13/2017 08:53:04 AM Test Reason : Chest Pain Blood Pressure : / mmHG Vent. Rate : 119 BPM Atrial Rate : 119 BPM P-R Int : 150 ms QRS Dur : 076 ms QT Int : 300 ms P-R-T Axes : 097 084 254 degrees QTc Int : 422 ms Sinus tachycardia. Left ventricular hypertrophy with repolarization abnormality Abnormal ECG When compared with ECG of 10-FEB-2017 13:45, Minimal criteria for Septal infarct are no longer present ST now depressed in Inferior leads Unconfirmed Result
[2017-02-15] MEDS: SYMBICORT 160/4.5 MICROGM INHALER INH SCH ×2 (07:45→19:10)
--- NOTE | 2017-02-15 07:53 | EKG Report ---
Test Performed on : 02/13/2017 09:15:04 AM Test Reason : No Order in [employer] Blood Pressure : / mmHG Vent. Rate : 097 BPM Atrial Rate : 097 BPM P-R Int : 144 ms QRS Dur : 084 ms QT Int : 374 ms P-R-T Axes : 076 075 105 degrees QTc Int : 474 ms Normal sinus rhythm. Possible Left atrial enlargement Left ventricular hypertrophy Nonspecific T wave abnormality Abnormal ECG When compared with ECG of 13-FEB-2017 08:53, (Unconfirmed) ST no longer depressed in Inferior leads ST no longer depressed in Lateral leads T wave inversion no longer evident in Inferior leads Unconfirmed Result
[2017-02-15 07:56] LABS: HEMATOCRIT 26.5 % (37.0-47.0); HEMOGLOBIN 8.1 g/dL (12.0-16.0); MCH 24.8 PG (27-31); MCHC 30.6 g/dL (33-37); MPV 9.6 FL (7.4-10.4); RBC 3.27 XMIL (4.2-5.4)
--- NOTE | 2017-02-15 07:58 | Diag Imaging Result Doc PS360 ---
CHEST-PORTABLE - 02/15/2017 INDICATION: dyspnea TECHNIQUE: COMPARISON: 02/14/2017 FINDINGS: Stable pacemaker. Heart size remains top normal. Stable hyperexpanded lungs suggesting COPD. Stable increased markings in the lung bases compatible with fibrosis or mild edema. Stable small infiltrate at the cardiac apex. IMPRESSION: No change from prior. Electronically signed by Juan Sinclair 02/15/2017 7:55 AM
[2017-02-15 08:15] LABS: AGAP 13; BUN 23 mg/dL (8-22); CALCIUM 8.7 mg/dL (8.8-10.2); CHLORIDE 95 mmol/L (98-107); COSMO 289; POTASSIUM 4.3 mmol/L (3.5-5.1); SODIUM 137 mmol/L (136-145); TCO2 29 mmol/L (25-35)
--- NOTE | 2017-02-15 08:59 | PROGRESS NOTE ---
DATE: 02/15/2017 PRESENT ILLNESS: The patient has a streptococcal bacteremia originating from a streptococcal infection of her right index finger. That finger has been amputated. The patient also has a pneumonia seen most prominently on the left side. The patient has asymptomatic funguria. She also had oral candidiasis but this has cleared. MEDICATIONS: The patient is receiving a combination of vancomycin and cefepime. The patient already has had 15 days of treatment with Rocephin and now with cefepime. The vancomycin has been present for 2 days. PHYSICAL EXAMINATION: Vital Signs: Temperature is 98.6, pulse 98, respirations 18, blood pressure 126/73. Generally: This is an ill-appearing, elderly female. She is in no acute distress. Cardiovascular: Heart rate is regular and rapid. Abdomen: Soft and nontender. Lungs: Clear to auscultation. Chest: The patient has a combination pacemaker/defibrillator in place. The site is not erythematous or swollen Bones, joints, muscles: The patient's right index finger is surgically absent. There was no odor to the finger. The dressing is intact. LAB AND X-RAY STUDIES: The patient has a small left-sided infiltrate on chest x-ray. The patient is coughing but she cannot bring up any sputum[place] [address], hemoglobin 8.1 and platelet count 539,000. The patient's last creatinine today is 0.6 with a GFR of 60. ASSESSMENT AND PLAN: The patient will require 6 weeks of treatment with antibiotics because of her streptococcal bacteremia which he may have hematogenously infected her pacemaker/defibrillator. We will be treating the patient with a total of 6 weeks with vancomycin for that. As regarding the patient's pneumonia, the patient is on cefepime, and before that, she was on Rocephin. This is the first day of treatment with cefepime. Regarding her pneumonia, I plan to continue vancomycin until the x-ray starts showing clearing. COMORBIDITIES: She is elderly. She injured her right finger which caused it to get infected. She has a defibrillator and pacemaker in place. cc: Joe Bustamante MD
[2017-02-15] MEDS: ALDACTONE PO SCH ×2 (11:33→20:23)
[2017-02-15] MEDS: PLAVIX PO SCH (11:33)
[2017-02-15] MEDS: FERROUS SULFATE PO SCH (11:34)
[2017-02-15] MEDS: PRINIVIL PO SCH (11:34)
[2017-02-15] MEDS: LOPRESSOR PO SCH (11:34)
[2017-02-15] MEDS: ASPIRIN PO SCH (11:34)
[2017-02-15] MEDS: LOVENOX SUBQ SCH (11:35)
[2017-02-15] MEDS: SOLU-MEDROL IV SCH ×2 (11:39→20:23)
[2017-02-15] MEDS: HUMALOG SUBQ SCH ×3 (11:39→20:23)
[2017-02-15] MEDS: VANCOMYCIN 1 GM/NS 1 GM/250 ML IVPB IV SCH (15:06)
--- NOTE | 2017-02-15 16:51 | PROGRESS NOTE ---
DATE: 02/15/2017 SUBJECTIVE: Today Ms. Dee refers to be doing a lot better. I went to see her right at the same time wound care was going to check on her wound. OBJECTIVELY: Vitals: Stable. Blood pressure is 122/59, pulse 107, respirations 16, temperature 98.4 degrees. General: Ms. Dee 66-year-old female. She was in bed, did not seem to be in any distress. HEENT: Mucosa is pink and moist. Anicteric. Acyanotic. Neck: Supple. Chest: Clear. A few bibasilar crepitations. Cardiovascular: Regular rate and rhythm. Abdomen: Soft. Extremities: No pedal edema. The right upper extremity the 2nd finger is completely amputated. There is scar tissue over the wound and I think there is some form of bone exposure. LABORATORY DATA: WBC is 10.09, hemoglobin is 8.1, platelet count of 532,000. Chemistry is reviewed, unremarkable. ASSESSMENT AND PLAN: 1. Acute respiratory distress secondary to underlying pneumonia. 2. Congestive heart failure exacerbation with an ejection fraction of 20%. 3. Severe dilated cardiomyopathy with global hypokinesis. 4. History of chronic obstructive pulmonary disease. 5. Iron deficiency anemia. 6. History of osteomyelitis of hand status post amputation. There is suspicion of a possible bone exposure. Will consult Dr. Jaramillo to reevaluate the patient's hand and see if there is the need for any further intervention. So in general I think Ms. Dee is relatively stable, is being followed by Dr. Bustamante. For now the plan to continue her on the cefepime and vancomycin. Will also continue with all her home medications. We would get Dr. Jaramillo to evaluate her hand. If everything is fine will be able to discharge her tomorrow with home health. The patient also has yeast in her urine. She is not particularly complaining of anything but I suspect she does have maybe vaginitis or true yeast urinary tract infection, glucose high so I would go ahead and put her on fluconazole for that. cc: Fernando Capps MD
[2017-02-15] MEDS: TYLENOL PO PRN ×2 (18:09→22:49)
[2017-02-15] MEDS: MAXIPIME 1 GM/NS 1 GM/50 ML IVPB IV SCH (18:31)
[2017-02-15] MEDS: SPIRIVA INH SCH (19:10)
[2017-02-15] MEDS: CRESTOR PO SCH (20:23)
--- NOTE | 2017-02-15 20:47 | CONSULTATION ---
DATE OF CONSULTATION: 02/15/2017 HISTORY OF PRESENT ILLNESS: This is a 66-year-old female known to me, who underwent a right finger amputation for infected necrosis of the index finger a couple of weeks ago. She was seen in my office at the end of last week and the wound was healing well. She was admitted with heart failure, has been diuresed, and has progressed well from that standpoint. They are making disposition plans and I have been consulted to evaluate her wound. She feels well. There is no pain in her hand. Dressing changes are going well. PHYSICAL EXAMINATION: Vital signs: Temperature 97.8, pulse 96, blood pressure 108/49, oxygen saturation 97% on nasal cannula. General: She is alert in no acute distress. Cardiovascular: Normal rate, regular rhythm. Extremities: The right hand is well perfused. There is no cellulitis. There is no edema. The amputation site of her index finger has some eschar here. This is mostly scab and crusting blood. I do not see any signs of infection or ongoing necrosis. LABORATORY DATA: White count is 10, hematocrit is 26, platelets are 539. Creatinine is 0.6, glucose is elevated at 325. ASSESSMENT AND PLAN: This is a 66-year-old female status post right index finger amputation. She has some eschar here but there is no necrosis. Mostly this is dried blood from her previous surgery site. It is quite tender when I attempted to debride this scab, but I have encouraged the patient to moisten the wound in the shower and with saline soaked gauze, and that this will facilitate debridement of this. Otherwise, I think it is healing well. I do not see any signs of ongoing infection or need for further debridement. She can see me as scheduled as an outpatient. She has this appointment already. Will continue wet-to-dry dressings twice daily with saline gauze in the meantime. cc: Jonn Jaramillo MD
[2017-02-15] MEDS: AMBIEN PO SCH (22:49)
[2017-02-16] MEDS: DUONEB (A & A) INH SCH ×3 (03:05→11:08)
[2017-02-16] MEDS: MAXIPIME 1 GM/NS 1 GM/50 ML IVPB IV SCH ×2 (05:55→17:06)
[2017-02-16] MEDS: PRILOSEC PO SCH ×2 (05:55→06:11)
[2017-02-16] MEDS: HUMALOG SUBQ SCH ×4 (06:09→17:06)
[2017-02-16 06:43] LABS: HEMATOCRIT 27.7 % (37.0-47.0); HEMOGLOBIN 8.4 g/dL (12.0-16.0); MCH 24.2 PG (27-31); MCHC 30.3 g/dL (33-37); MCV 79.8 FL (81-99); MPV 9.7 FL (7.4-10.4); RBC 3.47 XMIL (4.2-5.4)
[2017-02-16 07:13] LABS: AGAP 9; BUN 23 mg/dL (8-22); CALCIUM 8.5 mg/dL (8.8-10.2); CHLORIDE 95 mmol/L (98-107); COSMO 286; POTASSIUM 4.2 mmol/L (3.5-5.1); SODIUM 136 mmol/L (136-145); TCO2 32 mmol/L (25-35)
[2017-02-16] MEDS: SYMBICORT 160/4.5 MICROGM INHALER INH SCH (07:32)
--- NOTE | 2017-02-16 08:15 | PROGRESS NOTE ---
DATE: 02/16/2017 PRESENT ILLNESS: The patient has received complete treatment for her streptococcal bacteremia which originated from the streptococcal infection of her right index finger. She does still have some pneumonia and is receiving treatment for that. The patient has funguria but I think it is asymptomatic and does not deserve treatment. Finally, she had oral candidiasis but this has cleared. The patient has a pacemaker/defibrillator in place. MEDICATIONS: The patient currently has been on vancomycin for 3 days and a treatment with Rocephin followed by cefepime for 16 days. The patient will need a total of 6 weeks treatment with an IV antibiotic for her strep bacteremia because of the presence of the pacemaker/defibrillator which may have been infected hematogenously. PHYSICAL EXAMINATION: Vital Signs: Temperature is 98.4 degrees, pulse 100, respirations 16, blood pressure 113/63. General: This is a chronically ill-appearing, elderly female. She is in no acute distress. Cardiovascular: Her heart rate is regular. Lungs: Clear to auscultation. Abdomen: Soft and nontender. Chest: Patient has a combination pacemaker and defibrillator on the left side of her chest. The site is not swollen or tender. Bones, Joints, Muscles: The patient's right index finger is surgically absent. There is no surrounding erythema and there is no drainage coming from the wound. The PICC site in the patient's L arm is not red or swollen. LAB AND X-RAY: There is no new x-ray. The CBC for today shows a white count of 11,100 hemoglobin 8.4, and platelet count 599,000. Creatinine is 0.6. GFR is greater than 60. Blood cultures are negative. Urine grew yeast as mentioned above. Patient's comorbidities include being elderly and having a defibrillator and pacemaker in place. ASSESSMENT AND PLAN: The patient, unfortunately, had bacteremia and the combination pacemaker and defibrillator could have become infected from it. Ideally, I would like to see about if we could get 4 more weeks of treatment to complete a 6 week treatment course in order to avoid an infection. I plan to treat the patient for a total of 6 weeks with antibiotics because of her streptococcal bacteremia which may have infected her pacemaker/defibrillator. Also patient will require treatment for pneumonia. cc: MD LENA Tierney
[2017-02-16] MEDS: PRINIVIL PO SCH (09:35)
[2017-02-16] MEDS: ASPIRIN PO SCH (09:59)
[2017-02-16] MEDS: FERROUS SULFATE PO SCH (09:59)
[2017-02-16] MEDS: LOPRESSOR PO SCH (09:59)
[2017-02-16] MEDS: ALDACTONE PO SCH (09:59)
[2017-02-16] MEDS: SOLU-MEDROL IV SCH (10:00)
[2017-02-16] MEDS: LOVENOX SUBQ SCH (10:00)
[2017-02-16] MEDS: PLAVIX PO SCH (10:04)
[2017-02-16] MEDS: TYLENOL PO PRN (10:23)
[2017-02-16] MEDS: LASIX IV SCH (12:47)
[2017-02-16] MEDS ORDERED: VANCOMYCIN 1,300 MG in NS 250 ML IV SCH (14:00)
[2017-02-16 16:30] VITALS: BP 113/59
--- NOTE | 2017-02-16 20:45 | DISCHARGE SUMMARY ---
ADMISSION DATE: 02/13/2017 DISCHARGE DATE: 02/16/2017 DISPOSITION: Home with home health. FOLLOWUP: 1. Joe Bustamante MD. 2. Jonn Jaramillo MD. CONSULTATIONS DURING THIS ADMISSION: 1. Infectious Disease was consulted. Patient was seen by Dr. Bustamante. 2. General Surgery was consulted. Patient was seen by Dr. Jaramillo. INVASIVE PROCEDURES DURING THIS ADMISSION: None. IMAGING STUDIES OF SIGNIFICANCE: 1. CTA of the lungs was done on 02/14/2016. It was negative for PE but there was severe pulmonary emphysema. There are also infiltrates of both lung bases suggestive of pneumonia, some bilateral small effusions. 2. Echocardiogram was done on 02/13/2017 showing an ejection fraction estimated to be about 20% and global hypokinesis. No evidence of left ventricular hypertrophy. The RV systolic pressure was about 55 and there was no valve abnormality. 3. Chest x-ray was repeated yesterday that shows stable increased markings in the lung bases compatible with fibrosis and/or mild edema. ADMISSION DIAGNOSES: 1. Dyspnea. 2. Healthcare associated pneumonia. 3. Congestive heart failure. 4. Diabetes mellitus. 5. Iron deficiency. DIAGNOSES AT TIME OF DISCHARGE: 1. Acute respiratory distress secondary to underlying pneumonia and pulmonary edema. 2. Congestive heart failure exacerbation on presentation. Ejection fraction estimated to be 20%. 3. Severe dilated cardiomyopathy with global hypokinesis likely due to underlying coronary artery disease. 4. History of chronic obstructive pulmonary disease. 5. Iron deficiency anemia. 6. Osteomyelitis of hand status post amputation. 7. 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 PRESENTING COMPLAINT: Shortness of breath. HISTORY OF PRESENTING COMPLAINT: Ms. 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 The patient was on IV antibiotics but then had to come back because of progressively worsening shortness of breath. Upon presentation the patient was evaluated. A CT of the lungs to rule out PE was suggestive of possible bilateral pneumonia and some pleural effusion. Patient was admitted for further medical care. HOSPITAL COURSE: The patient did pretty well during the hospital stay. She was treated in the regular fashion with IV antibiotics and adequate diureses for which she did well. Infectious Disease was also consulted. There were some changes to the initial antibiotics. Patient was eventually maintained on cefepime and vancomycin which were the doses she is going to be discharged home on. In terms of the lung pleural effusions, the patient was diuresed adequately and had a total negative balance of 2299 during the hospital stay. She is going to continue with her medications as before. Today, Ms. Dee refers to be doing fine. She has a little concern that she gets short of breath when she exerts herself, however, on room air she was saturating about 96% at rest. I will get Respiratory Therapy to work with her, to check what her saturation gets when she exerts herself. Patient is, therefore, going to be discharged in stable condition once we determine her oxygen needs. We did discuss the possibility of Ms. Dee going to but she does not want to go. She says she had a very bad experience in the past with her so she prefers to go home with home health and physical therapy. During the hospital stay we had to call Surgery as well to evaluate the right thumb. Dr. Jaramillo evaluated the patient and he thought the wound was healing very well and there was no need for any further intervention. Ms. Dee is going to be discharged today with rehabilitation in very stable condition. DISCHARGE MEDICATIONS: 1. Spironolactone 12.5 b.i.d. 2. Zolpidem. 3. Crestor 10 mg daily. 4. Lisinopril 10 mg daily. 5. Guaifenesin. 6. Metformin 1 g b.i.d. 7. Clopidogrel 75 mg daily. 8. Metoprolol 50 mg daily. 9. Iron sulfate. 10. Omeprazole. cc: Fernando Capps MD
--- NOTE | 2017-02-17 07:10 | PROGRESS NOTE ---
DATE: 02/16/2017 ADDENDUM: The patient is being discharged today. Our plan is to treat her for 11 days with a combination of vancomycin 1300 mg daily and cefepime 1 g IV every 12 hours, both of them for 11 days. Then the patient will require 17 days more and be switched to Rocephin 1 g IV every 12 hours for 17 days. By doing this, the patient will be treated for her pneumonia and also she will have had a 6-week treatment of her streptococcal bacteremia, which may have hematogenously infected her pacemaker/defibrillator. I will be seeing the patient in my office in 4 weeks, which will be the end of her antibiotic therapy and we can remove her PICC at that time. cc: Joe Bustamante MD
== END 2017-02-16 18:42 | disposition home health service (06) ==
LOC: ED 08:50 → 4N 12:19 → SUATTDRO 12:19
PROVIDERS: ATTEND Internal Medicine